=== PATIENT | female | born 1955 | race Caucasian/White ===

== ENCOUNTER → 2016-04-19 | Outpatient (REF) | payer OTHER | LOC: M LAB REF 12:01 | PROVIDERS: ATTEND Nurse Practitioner Adult Health | DX: Z01.89 Encounter for other specified special examinations (principal) ==

== ENCOUNTER 2017-12-17 10:38 | Day surgery (SDC) | payer OTHER ==
[~2017-12-17 10:38] MED LIST: NS 1,000 ML IV
[2017-12-17] MEDS ORDERED: PROPOFOL 200 MG/20 ML VIAL As Ordered ×3 (12:50)
== END 2017-12-17 13:31 | disposition home or self-care (01) ==
LOC: M OPP 10:38
DX: Z12.11 Encounter for screening for malignant neoplasm of colon (principal); D17.5 Benign lipomatous neoplasm of intra-abdominal organs; E03.9 Hypothyroidism, unspecified; G47.33 Obstructive sleep apnea (adult) (pediatric); J44.9 Chronic obstructive pulmonary disease, unspecified; E66.9 Obesity, unspecified; M19.90 Unspecified osteoarthritis, unspecified site; Z79.890 Hormone replacement therapy; Z79.899 Other long term (current) drug therapy; Z86.010 Personal history of colon polyps; Z88.5 Allergy status to narcotic agent; Z98.890 Other specified postprocedural states; Z87.891 Personal history of nicotine dependence
CPT/HCPCS: 45378

== ENCOUNTER 2017-12-28 16:17 | Inpatient (IN) | payer OTHER ==
[2017-12-28 17:43] LABS: BASO % 0.4 % (0.0-1.0); EOS # 0.2 10^3/uL (0.0-0.50); EOS % 1.9 % (0.0-3.0); HEMATOCRIT 43.3 % (36.0-47.0); HEMOGLOBIN 13.7 g/dl (12.0-15.5); IMMATURE GRANULOCYTE % 0.4 % (0-3.0); LYMPH # 2.3 10^3/uL (1.5-4.5); LYMPH % 22.1 % (24.0-44.0); MEAN CORPUSCULAR HEMOGLOBIN 31.4 pg (27.0-33.0); MEAN CORPUSCULAR HGB CONC 31.6 g/dl (32.0-36.5); MEAN CORPUSCULAR VOLUME 99.3 fl (80.0-96.0); MONO # 0.6 10^3/uL (0.0-0.8); MONO % 5.8 % (0.0-5.0); NEUTROPHILS # 7.1 10^3/uL (1.8-7.7); NEUTROPHILS % 69.4 % (36.0-66.0); PLATELET COUNT, AUTOMATED 207 10^3/uL (150-450); RED BLOOD COUNT 4.36 10^6/uL (4.00-5.40); RED CELL DISTRIBUTION WIDTH 13.1 % (11.5-14.5); WHITE BLOOD COUNT 10.3 10^3/uL (4.0-10.0)
[2017-12-28 17:57] LABS: INR 1.09; PARTIAL THROMBOPLASTIN TIME 28.3 SECONDS (25.4-37.6); PROTHROMBIN TIME 14.2 SECONDS (12.1-14.4)
[2017-12-28 18:16] LABS: BEDSIDE GLUCOSE 106 MG/DL (80-115)
[2017-12-28 19:17] LABS: ALBUMIN 3.6 GM/DL (3.2-5.2); ALBUMIN/GLOBULIN RATIO 0.92 (1.00-1.93); ALKALINE PHOSPHATASE 92 U/L (45-117); ALT/SGPT 21 U/L (12-78); ANION GAP 9 MEQ/L (8-16); AST/SGOT 16 U/L (7-37); BILIRUBIN,DIRECT 0.2 MG/DL (0.0-0.2); BILIRUBIN,TOTAL 0.8 MG/DL (0.2-1.0); BLOOD UREA NITROGEN 19 MG/DL (7-18); CALCIUM LEVEL 9.2 MG/DL (8.8-10.2); CARBON DIOXIDE LEVEL 30 MEQ/L (21-32); CHLORIDE LEVEL 104 MEQ/L (98-107); CPK CREATINE PHOSPHOKINASE 84 U/L (26-192); CREATININE FOR GFR 0.76 MG/DL (0.55-1.30); FREE T4 1.34 NG/DL (0.76-1.46); GLOMERULAR FILTRATION RATE > 60.0 (>45); GLUCOSE, FASTING 102 MG/DL (70-100); MAGNESIUM LEVEL 2.3 MG/DL (1.8-2.4); MB/CK RELATIVE INDEX 1.55 (< OR =4); PHOSPHORUS LEVEL 2.9 MG/DL (2.5-4.9); SODIUM LEVEL 143 MEQ/L (136-145); TOTAL PROTEIN 7.5 GM/DL (6.4-8.2); TROPONIN I < 0.02 NG/ML (< 0.10)
[2017-12-28] MEDS: ASPIRIN 325 MG TAB PO (20:00)
[2017-12-28] MEDS: SIMVASTATIN 40 MG TAB PO (21:00)
[2017-12-29] MEDS: LEVOTHYROXINE 150MCG TABLET (0.15MG) PO (06:00)
[2017-12-29 06:31] LABS: BASO % 0.5 % (0.0-1.0); EOS # 0.2 10^3/uL (0.0-0.50); EOS % 2.5 % (0.0-3.0); HEMATOCRIT 40.3 % (36.0-47.0); HEMOGLOBIN 12.9 g/dl (12.0-15.5); IMMATURE GRANULOCYTE % 0.2 % (0-3.0); LYMPH # 2.2 10^3/uL (1.5-4.5); LYMPH % 26.3 % (24.0-44.0); MEAN CORPUSCULAR HEMOGLOBIN 31.8 pg (27.0-33.0); MEAN CORPUSCULAR VOLUME 99.3 fl (80.0-96.0); MONO # 0.5 10^3/uL (0.0-0.8); MONO % 6.3 % (0.0-5.0); NEUTROPHILS # 5.3 10^3/uL (1.8-7.7); NEUTROPHILS % 64.2 % (36.0-66.0); PLATELET COUNT, AUTOMATED 193 10^3/uL (150-450); RED BLOOD COUNT 4.06 10^6/uL (4.00-5.40); RED CELL DISTRIBUTION WIDTH 13.1 % (11.5-14.5); WHITE BLOOD COUNT 8.3 10^3/uL (4.0-10.0)
[2017-12-29 07:01] LABS: ALBUMIN/GLOBULIN RATIO 0.75 (1.00-1.93); ALKALINE PHOSPHATASE 80 U/L (45-117); ALT/SGPT 16 U/L (12-78); ANION GAP 6 MEQ/L (8-16); AST/SGOT 11 U/L (7-37); BILIRUBIN,TOTAL 0.5 MG/DL (0.2-1.0); BLOOD UREA NITROGEN 19 MG/DL (7-18); CARBON DIOXIDE LEVEL 29 MEQ/L (21-32); CHLORIDE LEVEL 106 MEQ/L (98-107); CREATININE FOR GFR 0.68 MG/DL (0.55-1.30); FREE THYROXINE INDEX 3.1 % (1.3-4.8); GLOMERULAR FILTRATION RATE > 60.0 (>45); GLUCOSE, FASTING 107 MG/DL (70-100); POTASSIUM SERUM 4.1 MEQ/L (3.5-5.1); SODIUM LEVEL 141 MEQ/L (136-145); T UPTAKE 36 % (30-39); THYROXINE (T4) 8.7 UG/DL (4.5-12.0)
[2017-12-29] MEDS ORDERED: SLF 3 ML SYR IV (08:00)
[2017-12-29] MEDS: TORSEMIDE 20 MG TAB PO (08:58)
[2017-12-29] MEDS: ASPIRIN 81 MG ENTERIC TAB PO (08:58)
[2017-12-29] MEDS: SLF 3 ML SYR IV ×2 (12:58→21:02)
[2017-12-29 14:04] LABS: ESTIMATED AVERAGE GLUCOSE 143 MG/DL (60-110); HEMOGLOBIN A1c 6.6 %
[2017-12-29] MEDS: ENOXAPARIN 40 MG/0.4 ML SYRINGE (J1650) SC (14:08)
[2017-12-29] MEDS: SIMVASTATIN 40 MG TAB PO (21:00)
[2017-12-30] MEDS: SLF 3 ML SYR IV ×3 (05:16→20:23)
[2017-12-30] MEDS: LEVOTHYROXINE 150MCG TABLET (0.15MG) PO (05:27)
[2017-12-30] MEDS: ASPIRIN 81 MG ENTERIC TAB PO (08:15)
[2017-12-30] MEDS: ENOXAPARIN 40 MG/0.4 ML SYRINGE (J1650) SC (08:15)
[2017-12-30] MEDS: TORSEMIDE 20 MG TAB PO (08:15)
[2017-12-30 08:48] LABS: HEMATOCRIT 42.2 % (36.0-47.0); HEMOGLOBIN 13.2 g/dl (12.0-15.5); MEAN CORPUSCULAR HEMOGLOBIN 31.6 pg (27.0-33.0); MEAN CORPUSCULAR HGB CONC 31.3 g/dl (32.0-36.5); PLATELET COUNT, AUTOMATED 194 10^3/uL (150-450); RED BLOOD COUNT 4.18 10^6/uL (4.00-5.40); RED CELL DISTRIBUTION WIDTH 13.2 % (11.5-14.5); WHITE BLOOD COUNT 8.6 10^3/uL (4.0-10.0)
[2017-12-30 09:09] LABS: ANION GAP 6 MEQ/L (8-16); BLOOD UREA NITROGEN 18 MG/DL (7-18); CALCIUM LEVEL 9.3 MG/DL (8.8-10.2); CARBON DIOXIDE LEVEL 30 MEQ/L (21-32); CHLORIDE LEVEL 105 MEQ/L (98-107); CREATININE FOR GFR 0.82 MG/DL (0.55-1.30); GLOMERULAR FILTRATION RATE > 60.0 (>45); GLUCOSE, FASTING 88 MG/DL (70-100); POTASSIUM SERUM 3.9 MEQ/L (3.5-5.1); SODIUM LEVEL 141 MEQ/L (136-145)
[2017-12-30] MEDS: SIMVASTATIN 40 MG TAB PO (20:23)
[2017-12-31] MEDS: LEVOTHYROXINE 150MCG TABLET (0.15MG) PO (05:17)
[2017-12-31] MEDS: SLF 3 ML SYR IV ×3 (05:17→20:00)
[2017-12-31 05:39] LABS: HEMATOCRIT 39.3 % (36.0-47.0); HEMOGLOBIN 12.3 g/dl (12.0-15.5); MEAN CORPUSCULAR HEMOGLOBIN 31.4 pg (27.0-33.0); MEAN CORPUSCULAR HGB CONC 31.3 g/dl (32.0-36.5); MEAN CORPUSCULAR VOLUME 100.3 fl (80.0-96.0); PLATELET COUNT, AUTOMATED 180 10^3/uL (150-450); RED BLOOD COUNT 3.92 10^6/uL (4.00-5.40); RED CELL DISTRIBUTION WIDTH 13.1 % (11.5-14.5); WHITE BLOOD COUNT 8.1 10^3/uL (4.0-10.0)
[2017-12-31 05:51] LABS: ANION GAP 5 MEQ/L (8-16); BLOOD UREA NITROGEN 17 MG/DL (7-18); CALCIUM LEVEL 8.4 MG/DL (8.8-10.2); CARBON DIOXIDE LEVEL 30 MEQ/L (21-32); CHLORIDE LEVEL 105 MEQ/L (98-107); CREATININE FOR GFR 0.74 MG/DL (0.55-1.30); GLOMERULAR FILTRATION RATE > 60.0 (>45); GLUCOSE, FASTING 110 MG/DL (70-100); POTASSIUM SERUM 3.7 MEQ/L (3.5-5.1); SODIUM LEVEL 140 MEQ/L (136-145)
[2017-12-31] MEDS: ACETAMINOPHEN TAB 650MG DOSE (2X325MG) PO ×3 (06:31→20:01)
[2017-12-31] MEDS: ASPIRIN 81 MG ENTERIC TAB PO (08:00)
[2017-12-31] MEDS: TORSEMIDE 20 MG TAB PO (08:01)
[2017-12-31] MEDS: ENOXAPARIN 40 MG/0.4 ML SYRINGE (J1650) SC (08:01)
[2017-12-31] MEDS: SIMVASTATIN 40 MG TAB PO (20:00)
[2018-01-01] MEDS: LEVOTHYROXINE 150MCG TABLET (0.15MG) PO (05:19)
[2018-01-01] MEDS: SLF 3 ML SYR IV (05:20)
[2018-01-01] MEDS: ACETAMINOPHEN TAB 650MG DOSE (2X325MG) PO (05:21)
[2018-01-01 05:47] LABS: HEMOGLOBIN 12.4 g/dl (12.0-15.5); MEAN CORPUSCULAR HEMOGLOBIN 30.7 pg (27.0-33.0); PLATELET COUNT, AUTOMATED 186 10^3/uL (150-450); RED BLOOD COUNT 4.04 10^6/uL (4.00-5.40); RED CELL DISTRIBUTION WIDTH 13.1 % (11.5-14.5); WHITE BLOOD COUNT 7.9 10^3/uL (4.0-10.0)
[2018-01-01 06:14] LABS: ANION GAP 5 MEQ/L (8-16); BLOOD UREA NITROGEN 21 MG/DL (7-18); CALCIUM LEVEL 8.7 MG/DL (8.8-10.2); CARBON DIOXIDE LEVEL 31 MEQ/L (21-32); CHLORIDE LEVEL 103 MEQ/L (98-107); CREATININE FOR GFR 0.76 MG/DL (0.55-1.30); GLOMERULAR FILTRATION RATE > 60.0 (>45); GLUCOSE, FASTING 112 MG/DL (70-100); POTASSIUM SERUM 3.5 MEQ/L (3.5-5.1); SODIUM LEVEL 139 MEQ/L (136-145)
[2018-01-01] MEDS: ASPIRIN 81 MG ENTERIC TAB PO (08:52)
[2018-01-01] MEDS: ENOXAPARIN 40 MG/0.4 ML SYRINGE (J1650) SC (08:52)
[2018-01-01] MEDS: TORSEMIDE 20 MG TAB PO (08:52)
== END 2018-01-01 14:02 | disposition home or self-care (01) | DRG 45 ==
LOC: M PCU 12-29 05:31 → M ED 16:17 → M ED INP 21:28
DX: I63.9 Cerebral infarction, unspecified (principal); Z68.43 Body mass index [BMI] 50.0-59.9, adult; E66.01 Morbid (severe) obesity due to excess calories; E03.9 Hypothyroidism, unspecified; F17.200 Nicotine dependence, unspecified, uncomplicated; E11.9 Type 2 diabetes mellitus without complications; G47.33 Obstructive sleep apnea (adult) (pediatric); J44.9 Chronic obstructive pulmonary disease, unspecified; Z79.899 Other long term (current) drug therapy; Z88.5 Allergy status to narcotic agent; I89.0 Lymphedema, not elsewhere classified

== ENCOUNTER 2018-12-25 19:07 | Observation (INO) | payer OTHER ==
[~2018-12-25] VITALS: Ht 165.1 cm; Wt 138.8 kg
[~2018-12-25 19:07] MED LIST changes: +ANOR1AER INH; +ASPI81TAEC PO; +CLOB0.0548; +LEVO150T7 PO; +MELO7.5T7 PO; -NS 1,000 ML IV; +SIMV40TA2 PO; +TORS20TA2 PO
--- NOTE | 2018-12-25 19:27 | REPVR ---
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 Radiation optimization: All CT scans at this facility use at least one of these dose optimization techniques: automated exposure control; mA and/or kV adjustment per patient size (includes targeted exams where dose is matched to clinical indication); or iterative reconstruction. Other technique: STROKE PROTOCOL was implemented. COMPARISON: CT Head without contrast 12/28/2017 4:34 PM FINDINGS: Brain: There is again a lacunar infarct in the left caudate head. 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 No intracranial hemorrhage or extraaxial collection is identified. There is no significant intracranial mass effect. Ventricles: The ventricles and sulci are stable in configuration. Bones/joints: Unremarkable. No acute fracture. Sinuses: Visualized sinuses are unremarkable. No fluid levels. Mastoid air cells: Visualized mastoid air cells are well aerated. Soft tissues: Unremarkable. Vasculature: Intracranial atherosclerotic vascular calcifications are again present. IMPRESSION: No CT evidence for acute intracranial abnormality or significant change since 12/28/17. ASSESSMENT: ASPECTS ([place] Stroke Program Early CT Score) is 10. COMMENT: Early cerebral infarct may be CT occult in the first 12 hours. Electronically signed by: Hakeem Castrejon On 12/25/2018 19:26:46 PM
[2018-12-25 19:58] LABS: BASO % 0.4 % (0.0-1.0); EOS # 0.1 10^3/uL (0.0-0.5); EOS % 1.2 % (0.0-3.0); HEMATOCRIT 41.4 % (36.0-47.0); HEMOGLOBIN 12.6 g/dl (12.0-15.5); LYMPH # 1.6 10^3/uL (1.5-5.0); LYMPH % 19.8 % (24.0-44.0); MEAN CORPUSCULAR HEMOGLOBIN 30.7 pg (27.0-33.0); MEAN CORPUSCULAR HGB CONC 30.4 g/dl (32.0-36.5); MEAN CORPUSCULAR VOLUME 100.7 fl (80.0-96.0); MONO # 0.6 10^3/uL (0.0-0.8); MONO % 7.2 % (0.0-5.0); NEUTROPHILS # 5.8 10^3/uL (1.5-8.5); PLATELET COUNT, AUTOMATED 223 10^3/uL (150-450); RED BLOOD COUNT 4.11 10^6/uL (4.00-5.40); WHITE BLOOD COUNT 8.2 10^3/uL (4.0-10.0)
[2018-12-25 20:19] LABS: ACETAMINOPHEN LEVEL < 2.0 UG/ML (10.0-30.0); ALBUMIN 3.2 GM/DL (3.2-5.2); ALT/SGPT 16 U/L (12-78); BILIRUBIN,DIRECT 0.1 MG/DL (0.0-0.2); BILIRUBIN,TOTAL 0.4 MG/DL (0.2-1.0); BLOOD UREA NITROGEN 20 MG/DL (7-18); CALCIUM LEVEL 9.4 MG/DL (8.8-10.2); CARBON DIOXIDE LEVEL 28 MEQ/L (21-32); CHLORIDE LEVEL 105 MEQ/L (98-107); CPK CREATINE PHOSPHOKINASE 66 U/L (26-192); CREATININE FOR GFR 0.85 MG/DL (0.55-1.30); ETHYL ALCOHOL (ETHANOL) < 0.003 % (0.000-0.010); GLOMERULAR FILTRATION RATE > 60.0 (>45); GLUCOSE, FASTING 101 MG/DL (70-100); MB/CK RELATIVE INDEX 1.52 (< OR =4); SALICYLATE LEVEL < 1.7 MG/DL (5.0-30.0); SODIUM LEVEL 139 MEQ/L (136-145); TOTAL PROTEIN 7.4 GM/DL (6.4-8.2); TROPONIN I < 0.02 NG/ML (< 0.10)
[2018-12-25] MEDS: NS 1,000 ML IV SCH (20:28)
--- NOTE | 2018-12-25 21:08 | HPEPDOC ---
[facility] Medical History & Physical Date of Admission Dec 25, 2018 Date of Service: Dec 25, 2018 Primary Care Physician: Jr Anna Collins Attending Physician: DORIAN YOO MD History and Physical TIME OF SERVICE: 9:50 PM CHIEF COMPLAINT: Slurred speech HISTORY OF PRESENT ILLNESS: This is a 63-year-old female who presented to the hospital for evaluation after an episode of slurred speech. Yesterday she had cataract surgery, today she slept most of the day and when she woke up her speech was slurred, which resolved prior to arrival in the ER. She denied having associated weakness, paresthesias, or falling. She did report having transient palpitations, runny nose, cough, congestion, and feeling tired. She received aspirin in the ED per discussion with Vinayak Aranda NIH score 0. 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 Status post cholecystectomy Status post myomectomy. Status post hernia repair 2 Status post surgery for small bowel obstruction. Status post right shoulder surgery. Status post resection of piloidal cyst Denies history of PR or diabetes SOCIAL HISTORY: Former smoker. Occasionally uses alcohol. Denies recreational drug use FAMILY HISTORY: Denies family history of CVA ALLERGIES: Please see below. HOME MEDICATIONS: Please see below. PHYSICAL EXAMINATION: VITAL SIGNS: Please see below. GENERAL APPEARANCE: Well-nourished, well-developed, not in apparent distress HEENT: Cephalic, atraumatic. Mucous membranes moist and pink. Left eye has conjunctival injection CARDIOVASCULAR: Regular rate and rhythm. No murmurs, rubs or gallops LUNGS: Clear to auscultation bilaterally on room air ABDOMEN: Positive bowel sounds. Abdomen is soft and nontender on palpation MUSCULOSKELETAL: Range of motion intact in all 4 extremities INTEGUMENT: She does not appear jaundice, and is not flushed NEUROLOGICAL: Cranial nerves II-12 are grossly intact. Speech is not dysarthric, strength is 5 out of 5 in all extremities PSYCHIATRIC: Alert and oriented, able to understand and follow commands LABORATORY DATA: See below. IMAGING: CT head " IMPRESSION: No CT evidence for acute intracranial abnormality or significant change since 12/28/17. Chest x-ray " Impression: 1. Mild cardiomegaly along with bilateral opacities (right greater left). Differential diagnosis includes element of pulmonary vascular congestion as well as multifocal pneumonia / atelectasis. 2. A pericardial effusion cannot be excluded." CTA neck " IMPRESSION: No acute abnormality. Ground glass opacification in the visualized right apex. Etiology can be infectious/inflammatory/edema. Comparison with the recent chest imaging is suggested for complete evaluation. CTA head " IMPRESSION: No acute abnormality." MRI brain " IMPRESSION: No acute findings." MICROBIOLOGY: Please see below. ASSESSMENT: Ms. Eid is a 63-year-old female with a past medical history of COPD, chronic oxygen-dependent respiratory failure, remote history of CVA with residual left sided weakness, and hypothyroidism who will be admitted for evaluation of slurred speech. PLAN: 1. Transient Slurred speech. Possibly due to TIA She reported having palpitations CTs of the brain and MRI reviewed and confirmed as no acute process. On arrival, her blood pressure was 191/88 EKG showed normal sinus rhythm with a heart rate of 60 Plan: Admit to medical floor/telemetry/continue aspirin and statin /follow-up lipid panel and A1c /Permissive hypertension for 24 hours with target blood pressure less than 220/120 / the daytime team can decide neurology consult is warranted submission her she can follow-up with neurology on an outpatient basis / will not consult PT, OT because she denies having any weakness / if the palpitations continue she can f/u her PCP for referral to have a Holter monitor placed 2.Mild Multifocal pneumonia She is hypoxic with an oxygen saturation of 88% despite having her baseline of 3 L of O2 There are no other SIRS criterial. Chest x-ray reviewed CURB 65 score to determine if pt should be admitted = 1 point = low risk = out patient treatment Plan: c/w supplemental O2 / Follow-up influenza / supplemental O2/ by mouth levofloxacin/ tessalon pearls / Acetaminophen PRN for fever 3. Asymptomatic bacteriuria No intervention 4. Hx of CVA Plan: Continue with aspirin and statin 6. COPD / Chronic oxygen-dependent respiratory failure Stable. Plan: continue supplemental oxygen/albuterol when necessary 7. 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 Disposition: Likely home after less than 2 midnight stay Vital Signs Vital Signs Date Time Temp Pulse Resp B/P (MAP) Pulse Ox O2 Delivery O2 Flow Rate FiO2 12/25/18 19:48 12/25/18 19:33 60 16 88 Room Air 3.0 12/25/18 19:07 97.5 Laboratory Data Labs 24H Laboratory Tests 2 12/25/18 19:42: Immature Granulocyte % (Auto) 0.4, Neutrophils (%) (Auto) 71.0H, Lymphocytes (%) (Auto) 19.8L, Monocytes (%) (Auto) 7.2H, Eosinophils (%) (Auto) 1.2, Basophils (%) (Auto) 0.4, Neutrophils # (Auto) 5.8, Lymphocytes # (Auto) 1.6, Monocytes # (Auto) 0.6, Eosinophils # (Auto) 0.1, Basophils # (Auto) 0.0, Nucleated Red Blood Cells % (auto) 0.0, Anion Gap 6L, Glomerular Filtration Rate > 60.0, Calcium Level 9.4, Total Bilirubin 0.4, Direct Bilirubin 0.1, Aspartate Amino Transf (AST/SGOT) 16, Alanine Aminotransferase (ALT/SGPT) 16, Alkaline Phosphatase 91, Total Creatine Kinase 66, Creatine Kinase MB 1.0, Creatine Kinase MB Relative Index 1.52, Troponin I < 0.02, Total Protein 7.4, Albumin 3.2, Albumin/Globulin Ratio 0.76L, Salicylates Level < 1.7L, Acetaminophen Level < 2.0L, Ethyl Alcohol Level < 0.003 12/25/18 20:47: CBC/BMP Laboratory Tests 12/25/18 19:42 Home Medications Scheduled Acetaminophen (Tylenol Extra Strength) 500 Mg Tablet, 1,000 MG PO DAILY Aspirin (Aspirin EC) 81 Mg Tablet.dr, 81 MG PO DAILY Glycopyrrolate/Formoterol Fum (Bevespi Aerosphere Inhaler) 10.7 Gm Hfa.aer.ad, 2 PUFFS INH BID Levofloxacin (Levaquin) 500 Mg Tablet, 500 MG PO DAILY@06 Levothyroxine Sodium (Synthroid) 175 Mcg Tablet, 175 MCG PO DAILY Simvastatin (Simvastatin) 40 Mg Tablet, 40 MG PO QHS Torsemide (Torsemide) 20 Mg Tab, 30 MG PO DAILY Scheduled PRN Tramadol HCl (Tramadol HCl) 50 Mg Tablet, 50 MG PO QID PRN for PAIN Allergies Coded Allergies: codeine (Verified Adverse Reaction, Mild, n/v, 12/25/18) A-FIB/CHADSVASC A-FIB History Current/History of A-Fib/PAF?: No Current PO Anticoag Therapy: No DORIAN YOO MD Dec 25, 2018 21:08
[2018-12-25] MEDS ORDERED: ACETAMINOPHEN TAB 650MG DOSE (2X325MG) PO PRN (21:15)
[2018-12-25] MEDS ORDERED: ASPIRIN 81 MG CHEW TABLET PO ONE (21:15)
[2018-12-25 21:28] LABS: AMPHETAMINES LEVEL URINE NEGATIVE (NEGATIVE); BARBITURATES URINE NEGATIVE (NEGATIVE); BENZODIAZEPINES URINE POSITIVE (NEGATIVE); CANNABINOIDS URINE NEGATIVE (NEGATIVE); COCAINE METABOLITE URINE NEGATIVE (NEGATIVE); METHADONE URINE NEGATIVE (NEGATIVE); OPIATES URINE NEGATIVE (NEGATIVE); PHENCYCLIDINE URINE NEGATIVE (NEGATIVE)
[2018-12-25] MEDS ORDERED: NITROFURANTOIN (MACROBID) 100 MG CAP PO ONE (21:30)
[2018-12-25] MEDS ORDERED: ISOVUE-370 76% 100ML VIAL (Q9967) As Ordered ONE (21:30)
[2018-12-25 21:33] LABS: CHOLESTEROL LEVEL 122 MG/DL (<200); CHOLESTEROL RISK RATIO 1.648 (<5); HDL CHOLESTEROL 74 MG/DL (>40); LDL CHOLESTEROL 34 MG/DL (<100); NON-HDL-C 48 MG/DL; TRIGLYCERIDES LEVEL 69 MG/DL (<150)
--- NOTE | 2018-12-25 21:53 | REPVR ---
PROCEDURE INFORMATION: Exam: CT Angiography Neck With Contrast Exam date and time: 12/25/2018 9:46 PM Clinical history: 63 years old, female; Condition or disease; Transient cerebral ischemic attacks (tia); Type not specified TECHNIQUE: Imaging protocol: Computed tomography angiography of the neck with intravenous contrast. 3D rendering: MIP reconstructed images were created and reviewed. Radiation optimization: All CT scans at this facility use at least one of these dose optimization techniques: automated exposure control; mA and/or kV adjustment per patient size (includes targeted exams where dose is matched to clinical indication); or iterative reconstruction. Contrast material: ISOVUE 370; Contrast volume: 100 ml; Contrast route: IV; COMPARISON: No relevant prior studies available. FINDINGS: VASCULATURE: Right common carotid artery: Unremarkable. No stenosis. No dissection or occlusion. Right internal carotid artery: Unremarkable extracranial segment. No stenosis. No dissection or occlusion. Right external carotid artery: Unremarkable. No occlusion or stenosis of the origin. Right vertebral artery: Unremarkable. No stenosis. No dissection or occlusion. Left common carotid artery: Unremarkable. No stenosis. No dissection or occlusion. Left internal carotid artery: Unremarkable extracranial segment. No stenosis. No dissection or occlusion. Left external carotid artery: Unremarkable. No occlusion or stenosis of the origin. Left vertebral artery: Unremarkable. No stenosis. No dissection or occlusion. NECK: Bones/joints: No acute fracture. Soft tissues: Normal. No significant soft tissue swelling. Lungs: Groundglass opacification in the visualized right upper lobe apex. IMPRESSION: No acute abnormality. Groundglass opacification in the visualized right apex. Etiology can be infectious/inflammatory/edema. Comparison with the recent chest imaging is suggested for complete evaluation. COMMENT: Reference per NASCET criteria for degree of stenosis: Mild: less than 50% stenosis. Moderate: 50-69% stenosis. Severe: 70-94% stenosis. Near occlusion: 95-99% stenosis. Electronically signed by: Kyle Merritt On 12/25/2018 21:53:16 PM
--- NOTE | 2018-12-25 21:57 | REPVR ---
PROCEDURE INFORMATION: Exam: CT Angiography Head With Contrast Exam date and time: 12/25/2018 9:46 PM Clinical history: 63 years old, female; Condition or disease; Transient cerebral ischemic attacks (tia); Type not specified TECHNIQUE: Imaging protocol: Computed tomography angiography of the head with intravenous contrast. 3D rendering: MIP reconstructed images were created and reviewed. Radiation optimization: All CT scans at this facility use at least one of these dose optimization techniques: automated exposure control; mA and/or kV adjustment per patient size (includes targeted exams where dose is matched to clinical indication); or iterative reconstruction. Contrast material: ISOVUE 370; Contrast volume: 100 ml; Contrast route: IV; COMPARISON: CT Head without contrast 12/25/2018 7:16 PM FINDINGS: Right internal carotid artery: Unremarkable. Intracranial segment is patent with no significant stenosis. No aneurysm. Right anterior cerebral artery: Unremarkable. No occlusion or significant stenosis. No aneurysm. Right middle cerebral artery: Unremarkable. No occlusion or significant stenosis. No aneurysm. Right posterior cerebral artery: Unremarkable. No occlusion or significant stenosis. No aneurysm. Right vertebral artery: Unremarkable. No occlusion or significant stenosis. No aneurysm. Left internal carotid artery: Unremarkable. Intracranial segment is patent with no significant stenosis. No aneurysm. Left anterior cerebral artery: Unremarkable. No occlusion or significant stenosis. No aneurysm. Left middle cerebral artery: Unremarkable. No occlusion or significant stenosis. No aneurysm. Left posterior cerebral artery: Unremarkable. No occlusion or significant stenosis. No aneurysm. Left vertebral artery: Unremarkable. No occlusion or significant stenosis. No aneurysm. Basilar artery: Unremarkable. No occlusion or significant stenosis. No aneurysm. IMPRESSION: No acute abnormality. Electronically signed by: Kyle Merritt On 12/25/2018 21:57:33 PM
[2018-12-25 22:09] LABS: HEMOGLOBIN A1c 6.8 %
[2018-12-25] MEDS ORDERED: SYNT175T2 PO (22:11)
[2018-12-25] MEDS ORDERED: SIMV40TA2 PO (22:11)
[2018-12-25] MEDS ORDERED: ASPI-161 PO (22:11)
[2018-12-25] MEDS ORDERED: BEVE1AER INH (22:11)
[2018-12-25] MEDS ORDERED: TRAM50TA2 PO (22:11)
--- NOTE | 2018-12-25 23:15 | REPVR ---
PROCEDURE INFORMATION: Exam: MR Head Without Contrast Exam date and time: 12/25/2018 9:10 PM Clinical history: 63 years old, female; Speech disturbance; Slurred speech; Additional info: TIA TECHNIQUE: Imaging protocol: MR of the head without contrast. COMPARISON: MRI-Brain without Contrast 12/30/2017 4:16 PM FINDINGS: Brain: There are a few scattered T2 and flair hyperintensity is demonstrated in the periventricular white matter as noted previously consistent with chronic small vessel ischemic change. 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 Stable basal ganglia chronic infarct on the left. Previously demonstrated focus of restricted diffusion no longer present. No new foci demonstrated. Ventricles: Normal. No ventriculomegaly. Bones/joints: Unremarkable. Soft tissues: Unremarkable. Sinuses: Normal as visualized. No acute sinusitis. Mastoid air cells: Normal as visualized. No mastoid effusion. Orbits: Unremarkable. IMPRESSION: No acute findings. Electronically signed by: Mark Corey On 12/25/2018 23:15:19 PM
[2018-12-25] MEDS ORDERED: ACET-897 PO (23:17)
[2018-12-25 23:30] VITALS: BP 117/64
[2018-12-25] MEDS ORDERED: traMADol 50 MG TAB PO PRN (23:45)
[2018-12-25] MEDS ORDERED: SIMVASTATIN 40 MG TAB PO SCH (23:45)
--- NOTE | 2018-12-26 00:26 | REP ---
Clinical: Altered mental status. Comparison: 12/28/2017. Findings: The cardiac silhouette is mildly enlarged perihilar and basilar opacities (right greater than left) are appreciated. Layering effusion cannot be excluded. No pneumothorax. Skeletal structures intact. Impression: 1. Mild cardiomegaly along with bilateral opacities (right greater left). Differential diagnosis includes element of pulmonary vascular congestion as well as multifocal pneumonia / atelectasis. 2. A pericardial effusion cannot be excluded. Electronically Signed by Chau Garcia MD 12/26/2018 12:18 A
[2018-12-26] MEDS: NS 1,000 ML IV SCH (00:28)
[2018-12-26] MEDS ORDERED: ALBUTEROL SULFATE 2.5 MG/0.5 ML INH NEB SOLN NEB PRN (01:00)
[2018-12-26] MEDS ORDERED: BENZONATATE 100 MG CAP PO PRN (01:00)
[2018-12-26 02:00] VITALS: BP 122/63
[2018-12-26 06:00] VITALS: BP 135/72
[2018-12-26] MEDS ORDERED: LevoFLOXacin 500 MG TABLET PO SCH (06:00)
[2018-12-26] MEDS ORDERED: LEVOTHYROXINE 150MCG TABLET (0.15MG) PO SCH (06:00)
[2018-12-26] MEDS ORDERED: FORMOTEROL FUMARATE 20 MCG/2 ML INHALATION SOLUTION (PERFOROMIST) INH SCH (08:00)
[2018-12-26] MEDS ORDERED: TIOTROPIUM INHALER/CAPSULE (SPIRIVA) INH SCH (08:00)
[2018-12-26] MEDS ORDERED: ASPIRIN 81 MG CHEW TABLET PO SCH (09:00)
[2018-12-26] MEDS ORDERED: ACETAMINOPHEN 500 MG TAB PO SCH (09:00)
[2018-12-26] MEDS ORDERED: TORSEMIDE 10 MG TABLET PO SCH (09:00)
[2018-12-26] MEDS ORDERED: ENTER DRUG NAME HERE (PATIENT'S OWN MED) INH SCH (09:00)
[2018-12-26 10:00] VITALS: BP 122/58
[2018-12-26 10:20] LABS: HEMATOCRIT 40.8 % (36.0-47.0); HEMOGLOBIN 12.3 g/dl (12.0-15.5); MEAN CORPUSCULAR HEMOGLOBIN 30.7 pg (27.0-33.0); MEAN CORPUSCULAR HGB CONC 30.1 g/dl (32.0-36.5); MEAN CORPUSCULAR VOLUME 101.7 fl (80.0-96.0); PLATELET COUNT, AUTOMATED 210 10^3/uL (150-450); RED BLOOD COUNT 4.01 10^6/uL (4.00-5.40); WHITE BLOOD COUNT 7.3 10^3/uL (4.0-10.0)
[2018-12-26 10:44] LABS: BLOOD UREA NITROGEN 17 MG/DL (7-18); CALCIUM LEVEL 9.7 MG/DL (8.8-10.2); CARBON DIOXIDE LEVEL 27 MEQ/L (21-32); CHLORIDE LEVEL 108 MEQ/L (98-107); CREATININE FOR GFR 0.74 MG/DL (0.55-1.30); GLOMERULAR FILTRATION RATE > 60.0 (>45); GLUCOSE, FASTING 120 MG/DL (70-100); POTASSIUM SERUM 4.2 MEQ/L (3.5-5.1); SODIUM LEVEL 141 MEQ/L (136-145)
[2018-12-26] MEDS ORDERED: LEVA1TAB2 PO (12:37)
--- NOTE | 2018-12-26 12:45 | DS.PDOC ---
Discharge Summary General Date of Admission Dec 25, 2018 at 19:08 Date of Discharge 12/26/2018 Discharge Summary ADMITTING DIAGNOSES: TIA DISCHARGE DIAGNOSES: TIA COMPLICATIONS/CHIEF COMPLAINT: resolved episode of slurred speech HISTORY OF PRESENT ILLNESS: "63-year-old female who presented to the hospital for evaluation after an episode of slurred speech. Yesterday she had cataract surgery, today she slept most of the day and when she woke up her speech was slurred, which resolved prior to arrival in the ER. She denied having associated weakness, paresthesias, or falling. She did report having transient palpitations, runny nose, cough, congestion, and feeling tired. She received aspirin in the ED per discussion with Vinayak Aranda NIH score 0." HOSPITAL COURSE: 63 y/o F came to ER for c/o one resolved episode of slurred speech. Throughout hospital stay pt remained asymtomatic, there was no significant event on telemetry. Pt was also evaluated by PT and was stable to be discharged home. During hospital pt was started on PO levofloxacin for suspected pneumonia. Imaging studies including CT/MRI head did not show any acute pathology. Pt was seen and examined at bedside on day of discharge. Pt stated that she is feeling fine and did not have any complaint. Pt was clinically and vitally stable at the time of discharge. DISCHARGE MEDICATIONS: Please see below. ALLERGIES: Please see below. PHYSICAL EXAMINATION ON DISCHARGE: VITAL SIGNS: Please see below. GENERAL: Comfortable HEENT: oral mucosa moist NECK: supple CARDIOVASCULAR EXAMINATION:regular rate and rhythm RESPIRATORY EXAMINATION: clear to auscultation ABDOMINAL EXAMINATION: soft, non tender NEUROLOGICAL EXAMINATION: No focal deficit Vital Signs/I&Os Vital Signs Date Time Temp Pulse Resp B/P (MAP) Pulse Ox O2 Delivery O2 Flow Rate FiO2 12/26/18 10:00 97.6 59 21 122/58 (79) 92 Nasal Cannula 3.0 I&O- Last 24 Hours up to 6 AM 12/26/18 06:00 Intake Total 100 ml Output Total 400 ml Balance -300 ml Laboratory Data Labs 24H Laboratory Tests 2 12/25/18 19:42: Immature Granulocyte % (Auto) 0.4, Neutrophils (%) (Auto) 71.0H, Lymphocytes (%) (Auto) 19.8L, Monocytes (%) (Auto) 7.2H, Eosinophils (%) (Auto) 1.2, Basophils (%) (Auto) 0.4, Neutrophils # (Auto) 5.8, Lymphocytes # (Auto) 1.6, Monocytes # (Auto) 0.6, Eosinophils # (Auto) 0.1, Basophils # (Auto) 0.0, Nucleated Red Blood Cells % (auto) 0.0, Anion Gap 6L, Glomerular Filtration Rate > 60.0, Estimated Mean Plasma Glucose 148H, Hemoglobin A1c 6.8, Calcium Level 9.4, Total Bilirubin 0.4, Direct Bilirubin 0.1, Aspartate Amino Transf (AST/SGOT) 16, Alanine Aminotransferase (ALT/SGPT) 16, Alkaline Phosphatase 91, Total Creatine Kinase 66, Creatine Kinase MB 1.0, Creatine Kinase MB Relative Index 1.52, Troponin I < 0.02, Total Protein 7.4, Albumin 3.2, Albumin/Globulin Ratio 0.76L, Triglycerides Level 69, Total Cholesterol 122, LDL Cholesterol 34, Non-HDL Cholesterol (LDL + VLDL) 48, Total HDL Cholesterol 74, Cholesterol/HDL Ratio 1.648, Salicylates Level < 1.7L, Acetaminophen Level < 2.0L, Ethyl Alcohol Level < 0.003 12/25/18 20:47: Urine Color YELLOW, Urine Appearance HAZY, Urine pH 6.0, Urine Specific [place] 1.026, Urine Protein 2+H, Urine Glucose (UA) NEGATIVE, Urine Ketones NEGATIVE, Urine Blood NEGATIVE, Urine Nitrite NEGATIVE, Urine Bilirubin NEGATIVE, Urine Urobilinogen 4.0H, Urine Leukocyte Esterase 1+H, Urine WBC (Auto) 16H, Urine RBC (Auto) 5H, Urine Hyaline Casts (Auto) 1, Urine Bacteria (Auto) NEGATIVE, Urine Squamous Epithelial Cells 2, Urine Mucus (Auto) SMALL, Urine Sperm (Auto) , Urine Opiates Screen NEGATIVE, Urine Methadone Screen NEGATIVE, Urine Barbiturates Screen NEGATIVE, Urine Phencyclidine Screen NEGATIVE, Urine Amphetamines Screen NEGATIVE, Urine Benzodiazepines Screen POSITIVEH, Urine Cocaine Metabolite Screen NEGATIVE, Urine Cannabinoids Screen NEGATIVE 12/26/18 10:04: Nucleated Red Blood Cells % (auto) 0.0, Anion Gap 6L, Glomerular Filtration Rate > 60.0, Calcium Level 9.7 CBC/BMP Laboratory Tests 12/25/18 19:42 12/26/18 10:04 Microbiology Microbiology 12/25/18 Urine Culture, Received Pending Discharge Medications Scheduled Acetaminophen (Tylenol Extra Strength) 500 Mg Tablet, 1,000 MG PO DAILY, (Reported) Aspirin (Aspirin EC) 81 Mg Tablet.dr, 81 MG PO DAILY, (Reported) Glycopyrrolate/Formoterol Fum (Bevespi Aerosphere Inhaler) 10.7 Gm Hfa.aer.ad, 2 PUFFS INH BID, (Reported) Levofloxacin (Levaquin) 500 Mg Tablet, 500 MG PO DAILY@06 Levothyroxine Sodium (Synthroid) 175 Mcg Tablet, 175 MCG PO DAILY, (Reported) Simvastatin (Simvastatin) 40 Mg Tablet, 40 MG PO QHS, (Reported) Torsemide (Torsemide) 20 Mg Tab, 30 MG PO DAILY, (Reported) Scheduled PRN Tramadol HCl (Tramadol HCl) 50 Mg Tablet, 50 MG PO QID PRN for PAIN, (Reported) Allergies Coded Allergies: codeine (Verified Adverse Reaction, Mild, n/v, 12/25/18) MYLES YU MD Dec 26, 2018 12:45
--- NOTE | 2018-12-26 18:57 | ECGEPIP ---
[facility] - ED Test Date: 2018-12-25 Pat Name: SELENA LUCAS Department: Room: [place] [address] Gender: Female Patient Care Associate: ELLA : 1955 Requested By: JEANNIE CHENG Order Number: [id number] Reading MD: Rosi Perez Measurements Intervals [place] Rate: 60 P: 29 TX: 178 QRS: 109 QRSD: 127 T: 7 QT: 441 QTc: 442 Interpretive Statements SINUS RHYTHM MARKED RIGHT AXIS DEVIATION MODERATE INTRAVENTRICULAR CONDUCTION DELAY NSTTW abnormalities SIMILAR 12/28/17 17:43 Electronically Signed on 12-26-2018 18:57:17 EST by Rosi Perez
== END 2018-12-26 14:15 | disposition home or self-care (01) ==
LOC: M ED 19:07 → M ED INP 19:08 → M MSPAV 23:24
PROVIDERS: ADMIT Internal Medicine; ATTEND Internal Medicine
DX: G45.9 Transient cerebral ischemic attack, unspecified (principal); E03.9 Hypothyroidism, unspecified; J44.9 Chronic obstructive pulmonary disease, unspecified; E66.01 Morbid (severe) obesity due to excess calories; Z99.81 Dependence on supplemental oxygen; Z79.82 Long term (current) use of aspirin; Z79.899 Other long term (current) drug therapy; Z88.5 Allergy status to narcotic agent; Z86.73 Personal history of transient ischemic attack (TIA), and cerebral infarction without residual deficits; Z87.891 Personal history of nicotine dependence
CPT/HCPCS: 36415; 70450; 70496; 70498; 70551; 71045; 80048; 80061; 80076; 80307; 81001; 82550; 82553; 83036; 85025; 85027; 87088; 87186; 93005; 93041; 94760; 96360; 96361; 97116; 97161; 97530; 99285; G0480; Q9967

== ENCOUNTER → 2019-07-10 | Outpatient (REF) | payer BC ==
[~2019-07-10] MED LIST changes: +ACET-897 PO; +AMLO2.5T3 PO; +ASPI-161 PO; +BEVE1AER INH; +COLC1TAB13 PO; +LEVA1TAB2 PO; +MULTCAP PO; +NITR0.4S14 SL; +ROSU5TAB5 PO; -SIMV40TA2 PO; +SIMV40TA20 PO; +SYNT175T2 PO; +TRAM50TA2 PO
== END ==
LOC: M LAB REF 15:58
PROVIDERS: ATTEND Nurse Practitioner Adult Health
DX: M10.072 Idiopathic gout, left ankle and foot (principal)

== ENCOUNTER 2019-07-14 18:16 | Inpatient (IN) | payer BC ==
[~2019-07-14] VITALS: Ht 165.1 cm; Wt 145.3 kg
[~2019-07-14 18:16] MED LIST changes: -AMLO2.5T3 PO; -COLC1TAB13 PO; -MULTCAP PO; -NITR0.4S14 SL; -ROSU5TAB5 PO
[2019-07-14] MEDS ORDERED: ADENOSINE 6MG/2ML INJECTION (J0153) As Ordered ONE (18:35)
[2019-07-14] MEDS ORDERED: AMIODARONE 150MG/3ML INJ (J0282) IVP STA (18:56)
[2019-07-14] MEDS: ADENOSINE 6MG/2ML INJECTION (J0153) IV STA (18:56)
[2019-07-14 18:58] LABS: BASO % 0.4 % (0.0-1.0); EOS # 0.1 10^3/uL (0.0-0.5); EOS % 0.7 % (0.0-3.0); HEMATOCRIT 39.6 % (36.0-47.0); HEMOGLOBIN 12.1 g/dl (12.0-15.5); LYMPH # 1.7 10^3/uL (1.5-5.0); LYMPH % 17.4 % (24.0-44.0); MEAN CORPUSCULAR HGB CONC 30.6 g/dl (32.0-36.5); MONO # 0.6 10^3/uL (0.0-0.8); MONO % 6.3 % (0.0-5.0); NEUTROPHILS # 7.4 10^3/uL (1.5-8.5); NEUTROPHILS % 74.8 % (36.0-66.0); PLATELET COUNT, AUTOMATED 212 10^3/uL (150-450); RED BLOOD COUNT 4.04 10^6/uL (4.00-5.40)
[2019-07-14] MEDS ORDERED: METOPROLOL TART 25 MG TABLET PO ONE (19:00)
--- NOTE | 2019-07-14 19:12 | ECGEPIP ---
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
--- NOTE | 2019-07-14 19:29 | REP ---
Clinical: Chest pain. Comparison: 12/25/2018. Findings: Cardiomegaly and chronic interstitial changes are appreciated. Superimposed mild pulmonary vascular congestion along with basilar atelectasis cannot definitively be excluded. No obvious effusion. No pneumothorax. Skeletal structures intact. Impression: 1. Cardiomegaly and stable chronic changes. 2. Cannot exclude subtle superimposed vascular congestion or basilar atelectasis. Electronically Signed by Chau Garcia MD 07/14/2019 07:20 P
[2019-07-14] MEDS: DOCUSATE SODIUM 100 MG CAP PO SCH (21:00)
[2019-07-14] MEDS ORDERED: ISOVUE-370 76% 100ML VIAL As Ordered ONE (21:30)
[2019-07-14 21:45] LABS: ALBUMIN 3.1 GM/DL (3.2-5.2); BILIRUBIN,DIRECT 0.2 MG/DL (0.0-0.2); BILIRUBIN,TOTAL 0.5 MG/DL (0.2-1.0); CALCIUM LEVEL 9.3 MG/DL (8.8-10.2); CK-MB VALUE MASS 7.4 NG/ML (<3.6); CREATININE FOR GFR 1.04 MG/DL (0.55-1.30); GLOMERULAR FILTRATION RATE 57.2 (>45); MAGNESIUM LEVEL 2.3 MG/DL (1.8-2.4); MB/CK RELATIVE INDEX 6.22 (< OR =4); POTASSIUM SERUM 4.6 MEQ/L (3.5-5.1); THYROID STIMULATING HORMONE 1.53 uIU/ML (0.358-3.740); TOTAL PROTEIN 7.5 GM/DL (6.4-8.2); TROPONIN I 2.26 NG/ML (< 0.10)
--- NOTE | 2019-07-14 22:18 | REPVR ---
PROCEDURE INFORMATION: Exam: CT Angiography Chest With Contrast Exam date and time: 07/14/2019 9:47 PM Age: 64 years old Clinical indication: Chest pain; Additional info: SOB; R/O pe TECHNIQUE: Imaging protocol: Computed tomographic angiography of the chest with intravenous contrast. 3D rendering: MIP and/or 3D reconstructed images were created by the technologist. Radiation optimization: All CT scans at this facility use at least one of these dose optimization techniques: automated exposure control; mA and/or kV adjustment per patient size (includes targeted exams where dose is matched to clinical indication); or iterative reconstruction. Contrast material: ISO 370; Contrast volume: 75 ml; Contrast route: IV; COMPARISON: CR PORTABLE CHEST X-RAY 07/14/2019 7:06 PM FINDINGS: Pulmonary arteries: Pulmonary arteries are enlarged. No central pulmonary embolism is seen. Evaluation of peripheral pulmonary arteries is limited due to excessive motion. Aorta: Unremarkable. No aortic aneurysm. No aortic dissection. Lungs: Multiple areas of atelectasis or scarring in both lungs. No airspace consolidation or masses. Pleural space: Unremarkable. No pneumothorax. No pleural effusion. Heart: Unremarkable. No cardiomegaly. No pericardial effusion. Lymph nodes: Unremarkable. No enlarged lymph nodes. Bones/joints: Skeletal degenerative changes are noted. Soft tissues: Unremarkable. IMPRESSION: 1. Motion limited exam. No central pulmonary embolism is seen. Evaluation of peripheral pulmonary arteries is very limited secondary to excessive motion. 2. Pulmonary artery enlargement suggesting pulmonary hypertension. Electronically signed by: Nicholas Mccracken On 07/14/2019 22:17:49 PM
[2019-07-14] MEDS ORDERED: HEPARIN DRIP 25,000 UNITS in IV 1 EA IV SCH (22:37)
[2019-07-14] MEDS ORDERED: ROSU5TAB5 PO (22:43)
[2019-07-14] MEDS ORDERED: AMLO2.5T3 PO (22:43)
[2019-07-14] MEDS ORDERED: NITR0.4S14 SL (22:44)
[2019-07-14] MEDS ORDERED: HEPARIN SOD (PORCINE) 5000UNITS/ML VIAL (J1644 PER 1000UNITS) IV ONE (22:45)
[2019-07-14] MEDS ORDERED: MULTCAP PO (22:54)
[2019-07-14 22:55] LABS: INR 1.17; PARTIAL THROMBOPLASTIN TIME 27.5 SECONDS (25.0-38.4); PROTHROMBIN TIME 14.6 SECONDS (11.8-14.0)
[2019-07-15] MEDS ORDERED: MAALOX 30 ML SUSP *UDC PO PRN (00:15)
[2019-07-15] MEDS ORDERED: MOM 30ML SUSPENSION UDC PO PRN (00:15)
[2019-07-15] MEDS ORDERED: HEPARIN DRIP 25,000 UNITS in IV 1 EA IV SCH (00:18)
--- NOTE | 2019-07-15 00:31 | HPEPDOC ---
General Date of Admission Jul 15, 2019 at 00:12 Date of Service: Jul 15, 2019 Chief Complaint The patient is a 64-year-old female admitted with a reason for visit of Atrial Flutter With Rvr. Source: Patient Exam Limitations: No limitations Timing/Duration: Other (today at 11:30 AM) Severity: Moderate Associated Symptoms: Other (palpitation and shortness of breath) History of Present Illness This is a 64 years old white female with past medical history of CVA with the rest her left upper and lower extremity weakness developed increased heart rate, palpitation and shortness of breath about 11:30 after she got out of the shower. Patient denies chest pain, nausea, vomiting, abdominal pain or diarrhea. In ED, patient was found to have various rhythms from SVT to a flutter and she received multiple medications to control her went red. Right now she is in normal sinus rhythm and offers no new complaints at the present time. Dr. Sanchez was called from ED and he will see the patient in a.m. Home Medications Scheduled Acetaminophen (Tylenol Extra Strength) 500 Mg Tablet, 1,000 MG PO DAILY, (Reported) Amlodipine Besylate (Amlodipine Besylate) 2.5 Mg Tablet, 2.5 MG PO DAILY, (Reported) Aspirin (Aspirin EC) 81 Mg Tablet.dr, 81 MG PO DAILY, (Reported) Glycopyrrolate/Formoterol Fum (Bevespi Aerosphere Inhaler) 10.7 Gm Hfa.aer.ad, 2 PUFFS INH BID, (Reported) Levothyroxine Sodium (Synthroid) 175 Mcg Tablet, 175 MCG PO DAILY, (Reported) Multivitamin (Multivitamins) 1 Each Capsule, 1 CAP PO DAILY, (Reported) Rosuvastatin Calcium (Rosuvastatin Calcium) 5 Mg Tablet, 5 MG PO DAILY, (Reported) Torsemide (Torsemide) 20 Mg Tab, 30 MG PO DAILY, (Reported) Scheduled PRN Nitroglycerin (Nitroglycerin) 0.4 Mg Tab.subl, 0.4 MG SL NITRO PRN for CHEST PAIN, (Reported) Tramadol HCl (Tramadol HCl) 50 Mg Tablet, 50 MG PO QID PRN for PAIN, (Reported) Allergies Coded Allergies: codeine (Verified Adverse Reaction, Mild, n/v, 12/25/18) Past Medical History Medical History CVA or with residual left upper and lower extremity weakness, COPD, morbid obesity, hypothyroidism Surgical History Tonsillectomy, cholecystectomy, myomectomy, hernia repairs 2. Small bowel obstruction surgery, right shoulder surgery, pilonidal cyst surgery Family History Family history reviewed. No history of cancer, diabetes or CVA Social History * Smoker: former Smoker Alcohol: Denies Drugs: denies A-FIB/CHADSVASC A-FIB History Current/History of A-Fib/PAF?: No Review of Systems Constitutional: Denies: Chills, Fever, Malaise, Night Sweats, Weakness, Fatigue, Weight Loss, Lethargy, Other Eyes: Denies: Pain, Vision change, Conjunctivae inflammation, Eyelid inflammation, Redness, Other ENT: Denies: Head Aches, Ear Pain, Dysphagia, Sinus Congestion, Post Nasal Drip, Sore Throat, Epistaxis, Other Symptoms Skin: Denies: Rash, Lesions, Jaundice, Bruising, Itching, Dry, Breakdown, Nail Changes, Other Pulmonary: Reports: Dyspnea Cardiovascular: Reports: Palpitations Gastrointestinal: Denies: Nausea, Vomiting, Abdominal Pain, Diarrhea, Constipa tion, Melena, Hematochezia, Other Symptoms Genitourinary: Denies: Dysuria, Frequency, Incontinence, Hematuria, Retention, Other Symptoms Hematologic: Denies: Bruising, Bleeding Excessively, Petecchia, Purpura, Enlarged Lymph Nodes, Other Hematologic Endocrine: Denies: Polydipsia, Polyphagia, Polyuria, Heat Intolerance, Cold Intolerance, Other Endocrine Sx Musculoskeletal: Denies: Neck Pain, Back Pain, Shoulder Pain, Arm Pain, Hand Pain, Leg Pain, Foot Pain, Joint Pain, Muscle Pain, Spasms, Other Symptoms Neurological: Denies: Weakness, Numbness, Incoordination, Change in speech, Confusion, Seizures, Other Symptoms Psych: Denies: Mood Normal, Anxiety, Depression, Memory Issues, Thoughts of Self Harm, Anger, Thoughts of Harming Other, Other Psych Physical Examination General Exam: Positive: Alert, Cooperative Eye Exam: Positive: PERRLA ENT Exam: Positive: Atraumatic, Mucous membr. moist/pink Neck Exam: Positive: Supple Chest Exam: Positive: Clear to auscultation, Normal air movement Heart Exam: Positive: Rate Normal, Normal S1, Normal S2 Abdomen Exam: Positive: Normal bowel sounds, Soft Extremity Exam: Positive: Normal pulses Skin Exam: Positive: Nl turgor and temperature Neuro Exam: Positive: Sensation Intact, Cranial Nerves 3-12 NL Psych Exam: Positive: Mood NL, Oriented x 3 Vital Signs Vital Signs Date Time Temp Pulse Resp B/P (MAP) Pulse Ox O2 Delivery O2 Flow Rate FiO2 07/14/19 23:50 59 20 95 Non-Rebreather 07/14/19 23:05 136/89 (105) 07/14/19 19:46 6.0 07/14/19 18:34 97.9 Laboratory Data Labs 24H Laboratory Tests 2 07/14/19 18:45: Immature Granulocyte % (Auto) 0.4, Neutrophils (%) (Auto) 74.8H, Lymphocytes (%) (Auto) 17.4L, Monocytes (%) (Auto) 6.3H, Eosinophils (%) (Auto) 0.7, Basophils (%) (Auto) 0.4, Neutrophils # (Auto) 7.4, Lymphocytes # (Auto) 1.7, Monocytes # (Auto) 0.6, Eosinophils # (Auto) 0.1, Basophils # (Auto) 0.0, Nucleated Red Blood Cells % (auto) 0.0, Prothrombin Time 14.6H, Prothromb Time International Ratio 1.17, Activated Partial Thromboplast Time 27.5 07/14/19 19:59: POC Glucose (Misc Panel) 114H, POC Sodium (Misc Panel) 138, POC Potassium (Misc Panel) 4.4, POC Chloride (Misc Panel) 99, POC Total CO2 (Misc Panel) 28.0H, POC Blood Urea Nitrogen (Misc Panel 26, POC Ionized Calcium (Misc Panel) 4.4L, POC C reatinine (Misc Panel) 1.0, POC Hematocrit (Misc Panel) 41.0 07/14/19 20:55: Anion Gap 1L, Glomerular Filtration Rate 57.2, Calcium Level 9.3, Magnesium Level 2.3, Total Bilirubin 0.5, Direct Bilirubin 0.2, Aspartate Amino Transf (AST/SGOT) 29, Alanine Aminotransferase (ALT/SGPT) 20, Alkaline Phosphatase 104, Total Creatine Kinase 119, Creatine Kinase MB 7.4H, Creatine Kinase MB Relative Index 6.22H, Troponin I 2.26*H, GA-Aob-W-Type Natriuretic Peptide 2976H, Total Protein 7.5, Albumin 3.1L, Albumin/Globulin Ratio 0.7L, Lipase 58L, Thyroid Stimulating Hormone (TSH) 1.530 CBC/BMP Laboratory Tests 07/14/19 18:45 07/14/19 20:55 Problems (1) Atrial flutter with rapid ventricular response Status: Acute Problem Text: 64 years old white female with past medical history of COPD, oxygen dependent, morbid obesity, hypothyroidism, remote history of CVA, presented with chief complaints of palpitation and shortness of breath. Subsequently was found to have a flutter with variable block, SVT. Also, with rapid ventricular rate. Patient received the amiodarone and beta blockers in the emergency room with conversion to normal sinus rhythm. Patient also had a CT angiogram done which did not show any PE yesterday shows cardiomegaly with Cipro, pulmonary vascular congestion, troponin is at 2.26. CBC, CMP within normal range and a BNP is 2976, lipase of 50 [facility] for further care and management Saline lock Dr. Sanchez was called by PA and he recommended IV anticoagulation and beta blockers till he sees patient in a.m. Will continue IV heparin as per protocol Diane start metoprolol 25 mg by mouth twice a day with holding parameters Will continue all home meds Echocardiogram has been ordered Elevated troponin, most likely secondary to type II OK/demand ischemia Clinically no evidence of pulmonary edema or congestive heart failure, hence will not start diuretics We will repeat a chest x-ray in a.m. again to rule out a pulmonary vascular congestion Serial troponins will be ordered Further recommendations as per cardiology Diet consistent carbohydrate diet DVT prophylaxis patient is on heparin infusion Bed rest (2) COPD (chronic obstructive pulmonary disease) Status: Chronic Problem Text: Stable continue home meds (3) Hypothyroidism Status: Chronic Problem Text: Stable continue home meds (4) Morbid obesity Status: Chronic Problem Text: Diet and exercise counseling Plan / VTE VTE Prophylaxis Ordered?: Yes GOSIA HAILE MD Jul 15, 2019 00:31
[2019-07-15 01:30] VITALS: BP 137/84
[2019-07-15 04:00] VITALS: BP 137/64
[2019-07-15] MEDS: LEVOTHYROXINE 150MCG TABLET (0.15MG) PO SCH (06:33)
[2019-07-15] MEDS: LEVOTHYROXINE 25MCG TABLET (0.025MG) PO SCH (06:33)
[2019-07-15 06:35] LABS: INR 1.28; PROTHROMBIN TIME 15.7 SECONDS (11.8-14.0)
[2019-07-15 06:52] LABS: TROPONIN I 2.47 NG/ML (< 0.10)
[2019-07-15 07:22] LABS: BASO % 0.5 % (0.0-1.0); EOS # 0.1 10^3/uL (0.0-0.5); HEMATOCRIT 37.5 % (36.0-47.0); HEMOGLOBIN 11.7 g/dl (12.0-15.5); LYMPH # 2.2 10^3/uL (1.5-5.0); LYMPH % 24.3 % (24.0-44.0); MEAN CORPUSCULAR HEMOGLOBIN 30.5 pg (27.0-33.0); MEAN CORPUSCULAR HGB CONC 31.2 g/dl (32.0-36.5); MEAN CORPUSCULAR VOLUME 97.9 fl (80.0-96.0); MONO # 0.7 10^3/uL (0.0-0.8); MONO % 7.3 % (0.0-5.0); NEUTROPHILS # 5.9 10^3/uL (1.5-8.5); NEUTROPHILS % 66.6 % (36.0-66.0); PLATELET COUNT, AUTOMATED 172 10^3/uL (150-450); RED BLOOD COUNT 3.83 10^6/uL (4.00-5.40); WHITE BLOOD COUNT 8.9 10^3/uL (4.0-10.0)
[2019-07-15] MEDS: HEPARIN SOD (PORCINE) 5000UNITS/ML VIAL (J1644 PER 1000UNITS) IV PRN ×2 (07:25→22:29)
[2019-07-15 07:58] LABS: ALBUMIN 2.9 GM/DL (3.2-5.2); ALT/SGPT 23 U/L (12-78); BILIRUBIN,TOTAL 0.7 MG/DL (0.2-1.0); BLOOD UREA NITROGEN 24 MG/DL (7-18); CALCIUM LEVEL 8.9 MG/DL (8.8-10.2); CARBON DIOXIDE LEVEL 33 MEQ/L (21-32); CHLORIDE LEVEL 101 MEQ/L (98-107); CREATININE FOR GFR 0.86 MG/DL (0.55-1.30); GLOMERULAR FILTRATION RATE > 60.0 (>45); GLUCOSE, FASTING 123 MG/DL (70-100); POTASSIUM SERUM 4.1 MEQ/L (3.5-5.1); SODIUM LEVEL 140 MEQ/L (136-145)
[2019-07-15 08:00] VITALS: BP 133/54
--- NOTE | 2019-07-15 08:05 | REP ---
Clinical: CHF. Comparison: 07/14/2019. Findings: Stable cardiomegaly along with prominent pulmonary vasculature, cephalization, increased interstitial markings, and lower lobe opacities are similar to prior examination. Differential diagnosis includes pulmonary vascular congestion and lower lobe infiltrates. No pneumothorax. Skeletal structures stable. Impression: Stable cardiomegaly and findings to suggest pulmonary vascular congestion versus bibasilar atelectasis/infiltrates. Electronically Signed by Chau Garcia MD 07/15/2019 07:56 A
[2019-07-15 08:29] LABS: ABG BASE EXCESS 5.9 (-2.0-2.0); ABG HCO3 31.3 MEQ/L (22.0-26.0); ABG O2 SATURATION 94.3 % (95.0-99.0); ABG PARTIAL PRESSURE CO2 48.8 mmHg (35.0-45.0); ABG PARTIAL PRESSURE O2 77.3 mmHg (75.0-100.0); ABG STANDARD HCO3 29.7 MEQ/L (22.0-26.0); ABG TOTAL CO2 32.8 MEQ/L (23.0-31.0); ABG pH (ARTERIAL) 7.425 UNITS (7.350-7.450)
--- NOTE | 2019-07-15 08:39 | ECGEPIP ---
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
--- NOTE | 2019-07-15 08:40 | ECGEPIP ---
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
[2019-07-15] MEDS ORDERED: METOPROLOL TART 25 MG TABLET PO SCH (09:00)
[2019-07-15] MEDS ORDERED: TORSEMIDE 20 MG TAB PO SCH (09:00)
[2019-07-15] MEDS ORDERED: PILL CUTTER 1 EACH XX PRN (09:15)
[2019-07-15] MEDS: TORSEMIDE (DEMADEX) 50 MG PER 1/2 TAB PO SCH (09:38)
[2019-07-15] MEDS: DOCUSATE SODIUM 100 MG CAP PO SCH ×2 (09:38→20:41)
[2019-07-15] MEDS: ASPIRIN 81 MG ENTERIC TAB PO SCH (09:38)
[2019-07-15] MEDS: METOPROLOL TART 12.5 MG PER 1/2 TAB PO SCH ×2 (09:39→20:44)
[2019-07-15] MEDS: ROSUVASTATIN 10 MG TAB (CRESTOR) PO SCH (09:39)
[2019-07-15 12:00] VITALS: BP 129/71
--- NOTE | 2019-07-15 12:59 | IPNPDOC ---
Text Note Date of Service The patient was seen on 07/15/19. NOTE Subjective: Patient seen and examined at bedside. States she is feeling somewhat better, but still short of breath. Denies chest pain, abdominal pain, N/V/D, headaches, changes in vision. Objective: General: NAD, lying comfortably in bed HEENT: NC/AT, EOMI Lungs: diminished breath sound b/l Heart: +S1S2, RRR Abd; soft, NT, +BS, morbidly obese Ext: trace edema, difficult to assess A/P: 64 yo female presents for palpitations and shortness of breath that occurred while showering. On presentation to ED found to be in SVT. #SVT/a flutter? - responded well to medications - now in normal sinus rhythm - follow as per cardiology - assistance appreciated #SOB/COPD - baseline chronic hypoxic respiratory requiring 2-3 L supplemental oxygen - CTA negative for PE - etiology likely multi-factorial - pulmonary hypertension, untreated TERRY, obesity hypoventilation syndrome, possibly fluid overload - supplemental oxygen as needed, incentive spirometry, respiratory treatments, steroid therapy - pulmonology consultation pending, echo pending #troponinemia - likely demand ischemia - trending down #hypothyroidism - continue synthroid #morbid obesity - dietary consultation pending - complicates medical care #hypothyroidism - continue synthroid #DLP - continue statin therapy #HTN - torsemide, lopressor #DVT prophylaxis - heparin SC VS,Fishbone, I+O VS, Fishbone, I+O Laboratory Tests 07/14/19 18:45 07/14/19 20:55 07/15/19 06:07 07/15/19 06:12 Vital Signs Date Time Temp Pulse Resp B/P (MAP) Pulse Ox O2 Delivery O2 Flow Rate FiO2 07/15/19 12:00 98.1 69 20 129/71 (90) 93 High Flow Cannula 8.0 I&O- Last 24 Hours up to 6 AM 07/15/19 05:59 Output Total 200 ml Balance -200 ml MEHDI RECINOS MD Jul 15, 2019 12:59
[2019-07-15 13:30] VITALS: O2SAT 90
[2019-07-15] MEDS: TIOTROPIUM INHALER/CAPSULE (SPIRIVA) INH SCH (14:44)
[2019-07-15 16:00] VITALS: BP 135/73
[2019-07-15] MEDS: traMADol 50 MG TAB PO PRN (18:46)
--- NOTE | 2019-07-15 18:47 | CR ---
DATE OF CONSULTATION: 07/15/2019 Surekha Eid is a 64-year-old female with past medical history of morbid obesity, obstructive sleep apnea, and chronic obstructive pulmonary disease (COPD), on 3 liters of home oxygen, who presented to the emergency department (ED) on 07/14/2019 with shortness of breath and palpitations. The patient reports that around 11 a.m. she was getting out of the shower, and she started to feel palpitations and was short of breath and somewhat dizzy. She said that it persisted throughout the afternoon until about 5 or 6 p.m., when she went to urgent care but then went straight to the emergency department (ED) afterward. She was not able to take her blood pressure or heart rate during this time. In the ED, she was found to have a heart rate of about 190. Of note, she reports that on 06/29/2019, she was sitting at home, and she felt as though she had a "vice weaver apprentice on her heart," which lasted about 30-40 second and then stopped. The patient also has a history of cerebrovascular accident (CVA) in 2018 and a transient ischemic attack (TIA) in 2019. She follows with Dr. Smart for her pulmonology care, and she uses a continuous positive airway pressure (CPAP) nightly. She has never seen a inspector cold working before, but she does know that she has pulmonary hypertension, as she has been told by Dr. Smart as such. This morning she denies any chest pain, chest discomfort. She states her breathing is back to normal. She does not have any residual weakness from any of her strokes. Her heart rate is in the 60s in normal sinus rhythm with frequent premature ventricular contractions (PVCs). Throughout this entire event, she did not have any chest pain as well. Also in the ED, she was found to have elevated troponin at 2.26, which trended up to 2.47. Otherwise, she has been stable since her arrival yesterday. PAST MEDICAL HISTORY: 1. COPD, on 3 liters home oxygen. 2. She has a history of CVA. 3. History of TIA. 4. She is morbidly obese. 5. She has a history of pulmonary hypertension. Last echo was done in 2018 with a right ventricular systolic pressure (RVSP) of 110. 6. She has hypothyroidism. SURGICAL HISTORY: 1. Tonsillectomy. 2. Cholecystectomy. 3. Open myomectomy. 4. Hernia repair times two. 5. She has had small-bowel obstruction surgery. 6. Right shoulder surgery. 7. Pilonidal cyst surgery. FAMILY HISTORY: No history of coronary artery disease (CAD), diabetes, or stroke. No history of cancers. Noncontributory. SOCIAL HISTORY: She is former smoker. She quit several years ago, but she was a heavy smoker prior to that. She denies any alcohol and denies any other drugs. She lives at home with her significant other in [place]. ALLERGIES: She has an allergy to CODEINE. HOME MEDICATIONS: - Tylenol Extra Strength 100 mg by mouth daily - amlodipine 2.5 mg by mouth daily - aspirin 81 mg by mouth daily - Bevespi inhaler 10.7 grams HFA, two puffs inhaled twice daily - levothyroxine 175 mcg by mouth daily - multivitamin one capsule by mouth daily - rosuvastatin 5 mg by mouth daily - torsemide 30 mg by mouth daily - as-needed nitroglycerine and as-needed tramadol 50 mg four times a day for pain REVIEW OF SYSTEMS: A 10-point review of systems was reviewed and was negative and as described in history of present illness (HPI). OBJECTIVE: VITAL SIGNS: Temperature 97.1, pulse 59, respiratory rate 22, blood pressure 133/54, pulse oximetry 91% on 10 liters of nasal cannula. GENERAL: Morbidly obese, lying in bed flat. Calm, cooperative, very pleasant. HEENT: Her mucous membranes are moist. Her pupils are equally round and reactive to light. Extraocular movements are intact. She has no scleral icterus. NECK: Supple. No thyromegaly. No lymphadenopathy. RESPIRATORY: She has faint crackles at the bases bilaterally. Otherwise, no adventitious breath sounds are appreciated. HEART: She has a very prominent S2 louder than S1. She is regular rate and rhythm with frequent PVCs. Otherwise, no murmurs, rubs, or gallops are appreciated. ABDOMEN: Obese, soft, nontender to palpation. There is a healed scar from her cholecystectomy in the midline. Otherwise, positive bowel sounds. No masses. No organomegaly. LOWER EXTREMITIES: She has about 2+ pitting edema in the lower extremities bilaterally. SKIN: She has some redness or chronic venous stasis changes in her legs bilaterally. No evidence of infection. LYMPHATIC: She has no enlarged lymph nodes in the groin or the neck. NEUROLOGIC: She has strength 5/5 in both upper and lower extremities. She has no loss of sensation, and her cranial nerves II-XII are intact with no obvious focal deficit. PSYCHIATRIC: She has normal mood and normal affect. LABORATORY DATA: Today demonstrate a CBC which shows white blood cell count of 8.9, hemoglobin 11.7, hematocrit 37.5, platelet count of 172. She had an ABG done at 8:05 a.m. this morning, which showed 7.425, 48, and 77. Chemistries: Sodium 140, potassium 4.1, chloride 101, carbon dioxide 33, BUN 24, creatinine 0.86. Her fasting glucose was 123. Her last troponin was 2.47, up from 2.26. Her BNP was 2976. Her albumin is 2.9. PT was 15.7 and PTT was 46. IMAGING She had a chest x-ray done this morning, which demonstrates stable cardiomegaly and findings to suggest pulmonary vascular congestion versus bibasilar atelectasis or infiltrate. She did have a CT angiogram of the chest done yesterday in the ED with the findings of enlarged pulmonary arteries. No central pulmonary embolism is seen. Evaluation of peripheral pulmonary arteries is limited due to excessive motion. Findings suggestive of pulmonary hypertension. Her last echo was done 12/30/2017, which read that her right ventricular systolic pressure was found to have 116. Normal sinus rhythm. She has mild concentric left ventricular hypertrophy with obvious septal flattening related to right ventricular pressure overload, yet preserved global resting left ventricular systolic function. Moderately dilated inferior vena cava (IVC) with absent respiratory collapse, in keeping with elevated central venous pressure or right heart pressure, and subtle mitral annular thickening but normal leaflet thickness and excursion with no posterior systolic buckling and only trace insufficiency. ASSESSMENT: This is a 64-year-old female with morbid obesity and pulmonary hypertension who presented with shortness of breath and palpitations, found to be tachycardic, responsive to beta blockers overnight. Her pulmonary hypertension is severe, and subsequent echo is pending. PLAN: At this time, the patient has been already started on anticoagulation with heparin drip. I have increased her torsemide to 50 mg daily and have stopped her amlodipine due to lower extremity swelling. In addition, I have decreased her metoprolol to 12.5 mg twice a day, and we are awaiting an echocardiogram to be done today. Given that this patient has very severe pulmonary hypertension with an elevated right ventricular systolic pressure (RVSP), I would recommend that she have a dietary consult for very rapid weight loss, as her prognosis is about 1 year, if not less. She will need someone to bring her CPAP in for her to sleep with at night, and eventually she will need a right heart catheterization to further study her pulmonary hypertension. Her troponins were elevated, most likely secondary to prolonged tachycardia in the 190s. It seems as though she was tachycardic for about 5-6 hours yesterday. In addition, I have sought out the records of Dr. Smart, who reports that she is quite compliant with her CPAP, and her last echo prior to 2018 was done in 2016, but her RVSP at that time was only 80. We will continue to follow this patient alongside with you, and if you have any questions, please free to call us. Addendum MD Tyesha: I have seen and examined the patient with . In principle agree with her assessment and plan. Please see separately dictated note. MTDD
[2019-07-16] VITALS: BP 131/59
[2019-07-16] MEDS ORDERED: diphenhydrAMINE 25MG CAP PO ONE (01:15)
[2019-07-16] MEDS: ACETAMINOPHEN TAB 650MG DOSE (2X325MG) PO PRN (01:24)
[2019-07-16 04:00] VITALS: BP 117/86
[2019-07-16 04:01] LABS: HEMATOCRIT 36.7 % (36.0-47.0); HEMOGLOBIN 11.3 g/dl (12.0-15.5); MEAN CORPUSCULAR HEMOGLOBIN 30.3 pg (27.0-33.0); MEAN CORPUSCULAR HGB CONC 30.8 g/dl (32.0-36.5); MEAN CORPUSCULAR VOLUME 98.4 fl (80.0-96.0); PLATELET COUNT, AUTOMATED 161 10^3/uL (150-450); RED BLOOD COUNT 3.73 10^6/uL (4.00-5.40); WHITE BLOOD COUNT 8.8 10^3/uL (4.0-10.0)
[2019-07-16 04:25] LABS: ALBUMIN 2.8 GM/DL (3.2-5.2); ALT/SGPT 17 U/L (12-78); BILIRUBIN,TOTAL 0.5 MG/DL (0.2-1.0); BLOOD UREA NITROGEN 25 MG/DL (7-18); CALCIUM LEVEL 8.6 MG/DL (8.8-10.2); CARBON DIOXIDE LEVEL 35 MEQ/L (21-32); CHLORIDE LEVEL 102 MEQ/L (98-107); CREATININE FOR GFR 0.84 MG/DL (0.55-1.30); GLOMERULAR FILTRATION RATE > 60.0 (>45); GLUCOSE, FASTING 113 MG/DL (70-100); MAGNESIUM LEVEL 2.1 MG/DL (1.8-2.4); POTASSIUM SERUM 3.4 MEQ/L (3.5-5.1); SODIUM LEVEL 141 MEQ/L (136-145); TOTAL PROTEIN 6.7 GM/DL (6.4-8.2)
[2019-07-16] MEDS: LEVOTHYROXINE 150MCG TABLET (0.15MG) PO SCH (06:44)
[2019-07-16] MEDS: LEVOTHYROXINE 25MCG TABLET (0.025MG) PO SCH (06:44)
--- NOTE | 2019-07-16 06:49 | CR ---
DATE OF CONSULTATION: 07/15/2019 I was called to see this 64-year-old female known to our practice. She follows with Dr. Smart on an outpatient basis and was last seen in the office in February. The patient has chronic obstructive pulmonary disease (40 pack-year cigarette smoking, quit 2013), obstructive sleep apnea syndrome (RDI of 14 with desaturations to 60%) on C-PAP since 2007 and compliant (18 cm with 3 liters of oxygen bled through the system), pulmonary hypertension and obesity hypoventilation syndrome (pCO2 stable since 2009). The patient presented with palpitations and was found to be in multifocal atrial tachycardia in the emergency department and was converted to a sinus rhythm with medications and she remains hypoxemic. At baseline, the patient requires 3 liters of oxygen via nasal cannula and desaturates with activity. PAST MEDICAL HISTORY: Includes obesity, cerebrovascular accident (lacunar), diabetes mellitus, and hypothyroidism. HOME MEDICATIONS: Include Bevespi and torsemide. ALLERGIES: She has no medication allergies. SOCIAL HISTORY: Reformed smoker. She has a 40 pack-year history. She does not take alcohol. She has a supportive local family. FAMILY HISTORY: Not contributory to the current illness. REVIEW OF SYSTEMS: Constitutional: She has noted an 8 pound weight gain over the past 6 months and no other changes in appetite or constitutional symptoms. HEENT: There is no impairment of vision, smell or hearing. Cardiovascular: She denies a prior history of palpitations. Does not experience orthopnea, but has been using pressure therapy for some years. No history of paroxysmal nocturnal dyspnea. She has chronic extremity edema which has been worsening. Pulmonary: See above. GI: There is no history of hepatitis, pancreatitis or gallbladder disease. : No frequency, dysuria or kidney stones. Endocrine: She is a diabetic and hypothyroid. Neurologic: No easy bruising or bleeding. Neurologic: No history of seizures. She did have lacunar strokes with no residual. Musculoskeletal: She has muscle aches and cramps, low back pain. Allergies/Immunology: No specific environmental sensitivities are reported. PHYSICAL EXAMINATION: Her temperature is 98.1, pulse rate 69, respirations 20, blood pressure 129/71. She is awake, alert, oriented and in no acute distress. HEENT: Pupils are equal, round and react to light. Oral mucosa is pink. Neck is supple, grove, without jugular venous distention. Obvious carotid upstroke is sluggish, but there is no bruit. Heart sounds are regular without appreciable murmur, quite distant. Breath sounds diminished bilaterally. There are crepitant rales in the bases, right slightly greater than left. No dullness. No fremitus. Chest is symmetric. Moves symmetrically. Expiratory phase is mildly prolonged. Abdomen is soft and grossly obese. Extremities: Show tense edema bilaterally and skin changes from chronic edema. Peripheral pulses are barely palpable. DIAGNOSTIC STUDIES: Chest x-ray shows cardiomegaly and prominent interstitial markings. Her white cell count is 8.9, hemoglobin 11.7, hematocrit 37.5 and platelet count 172,000. Electrolytes are sodium 140, potassium 4.1, chloride 101, CO2 33, BUN 24, creatinine 0.86, and glucose 123. Her beta nitride peptide was 2976. Troponin was 2.26 and now 2.47. AST is 29, ALT 20, TSH 1.53. Arterial blood gases show pH 7.42, pCO2 48 and pO2 77. IMPRESSIONS: 1. Hypoxemia, acute on chronic, secondary to pulmonary edema. 2. Chronic obstructive pulmonary disease, moderate. 3. Obstructive sleep apnea syndrome, severe. 4. Obesity hypoventilation syndrome. 5. Pulmonary hypertension, type 3. RECOMMENDATIONS: 1. I agree with diuresis and would target a negative fluid balance over time. 2. I would restart her anticholinergic inhaled therapy. The hospital does not stock Bevespi, and I will write for [facility]. 3. The patient should use her home C-PAP device. Her family has been contacted and will deliver the device. We will arrange for oxygen flow rate commensurate with her need. Thank you for allowing me to consult in the care of this patient. If there are questions, please do not hesitate to contact me.
[2019-07-16] MEDS: TIOTROPIUM INHALER/CAPSULE (SPIRIVA) INH SCH (07:15)
[2019-07-16] MEDS ORDERED: POTASSIUM CHLORIDE 10 MEQ SR TABLET PO ONE (07:30)
[2019-07-16 08:00] VITALS: BP 130/86
--- NOTE | 2019-07-16 08:56 | CR ---
DATE OF CONSULTATION: 07/15/2019 REFERRING PHYSICIAN: Dr. Payam Huizar. INDICATION: Atrial flutter. HISTORY OF PRESENT ILLNESS: Mrs. Eid is previously unknown to me. She is a rather delightful 64-year-old female who was admitted to [facility] yesterday. She said that her symptoms started around 10:30 a.m. She was taking a shower and as she was drying herself outside of the shower stall she started experiencing palpitations. She eventually was able to call her and he took her to urgent care but it was not until about 5:00 p.m. She was found to be very tachycardic with ventricular rate around 190 beats per minute. She reportedly got a total three doses of adenosine IV with that failed to restore sinus rhythm. She was then transported to [facility] ([facility]) emergency room (ER) where additional dose of adenosine was administered. Per my communication with ER physician, it revealed that there were underlying flutter waves. But eventually she converted to sinus rhythm after a single dose of IV amiodarone. In spite of converting to sinus rhythm, she continued to be rather hypoxic and CT angiography of the chest was performed that revealed no evidence for pulmonary embolism but it was poor quality study with significant motion artifact. Today at bedside this morning, the patient tells me that she is probably close to her baseline even though her shortness of breath is probably slightly worse. She does have a longstanding history of chronic obstructive pulmonary disease (COPD) and sleep apnea for which she has been followed by Dr. Smart. She had an echocardiogram in our facility 2 years ago that revealed severe pulmonary hypertension and estimated pulmonary artery pressure over 110 mmHg. To the best of her understanding, there has not been any further investigation in this matter. I actually contacted her primary care physician's office and besides her being followed by pulmonary, there does not appear to be any indication that she was ever evaluated in the pulmonary hypertension center. PAST MEDICAL HISTORY: 1. Morbid obesity. 2. Obstructive sleep apnea (TERRY) 3. Chronic obstructive pulmonary disease (COPD). 4. Hypothyroidism. 5. Hypercholesterolemia. 6. Cerebrovascular accident (CVA). PAST SURGICAL HISTORY: Tonsillectomy. Cholecystectomy. Hernia repair. Small bowel surgery. Right shoulder surgery. Pilonidal cyst surgery. OUTPATIENT MEDICATIONS: - amlodipine 2.5 mg daily (started recently) - aspirin 81 - bronchodilators - levothyroxine 175 mcg a day - rosuvastatin 5 mg a day - torsemide 30 mg a day ALLERGIES: She reports allergies to CODEINE. FAMILY HISTORY: Not positive for early coronary artery disease (CAD) or congestive heart failure (CHF). SOCIAL HISTORY: The patient is , lives with . 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 She used to smoke but quit about 10 years ago. No significant alcohol use. REVIEW OF SYSTEMS: She denies any recent infection, fever, chills, nausea, vomiting and diarrhea. She has chronic shortness of breath, typically [employer] class III to IV and has been on 3 liters of oxygen by nasal cannula chronically for several years. Denies any history of current coronary artery disease, even though she reported that she had approximately 10-minute episode of severe chest discomfort approximately 3 weeks ago without any obvious trigger. No abdominal pain. No genitourinary symptoms. No bleeding history. She does have chronic peripheral edema that is typically quite significant according to the patient. No history of syncope. PHYSICAL EXAMINATION: The patient is morbidly obese white female very pleasant, alert, oriented times three in no distress. Vital signs: This morning blood pressure 133/54, heart rate in the high 50s low 60s sinus rhythm. She is afebrile. Saturation was 91% on 8 liters of oxygen by nasal cannula. Alert and oriented and appropriate. He jugular venous pulse (JVP) is very difficult to border patrol officer due to her body habitus. It does not appear grossly high but it can be certainly underestimated. Lungs have very fair movement due to morbid obesity. It is difficult to estimate. Cardiac exam: I am unable to palpate precordial impulse due to body habitus. She has a loud S2. I do not appreciate any murmur, gallop or rub. Abdomen is morbidly obese but soft and nontender without obvious organomegaly or guarding. Extremities: 2+ edema to knees. There is some mild redness to her shins. Peripheral pulses are palpable. Neurologically she is grossly intact. LABORATORY: INR 1.3. Basic metabolic panel was normal. Liver function tests were normal. She had troponin I yesterday 2.26, this morning 2.45 and proBNP is 3,000, albumin 2.9. ABGs performed this morning revealed pH 7.42, pCO2 49, pO2 77 and saturation 94% on supplemental oxygen. Chest x-ray is consistent with cardiomegaly and prominent pulmonary arteries and diffuse infiltrates. CT CHEST: As above. ECG reveals initially narrow complex tachycardia with right axis deviation and poor R-wave progression. After she reverted to sinus rhythm she remains to have prominent right axis deviation, incomplete right bundle branch block and repolarization abnormalities all suggestive of pulmonary hypertension. ASSESSMENT/PLAN: Mrs. Eid is a 64-year-old morbidly obese female who has likely very longstanding history of severe pulmonary hypertension based on echocardiogram 2 years ago performed in our institution when she presented with stroke. Her pulmonary artery pressure was over 110 mmHg. Currently, she presented with narrow complex tachycardia most likely representing atypical flutter and converted to sinus rhythm with single dose of amiodarone. She certainly is a very seriously ill woman, even though her condition is relatively chronic and the only new development is atrial flutter. My plan is to not to administer additional doses of amiodarone and keep her only very low-dose beta-stuart. If there is a relapse of atrial flutter, then we will have to continue antiarrhythmics. She will be started on anticoagulation. At this point she has at least two indications which is severe pulmonary hypertension as well as atrial flutter. Because there is a tentative plan to pursue cardiac catheterization, I would recommend to continue heparin in the short run. The second and probably leading problem is severe pulmonary hypertension. The etiology can be secondary to pulmonary disease but there could be a component of left-sided heart failure as well. She certainly has very prominent right-sided heart failure and I advance the dose of diuretics to torsemide 50 mg daily. I do expect that there is at least 10 pounds of water excess weight. Ultimately, I would like to transfer the patient to [facility] in order to accomplish right and left heart catheterization. Even though her troponin is elevated I suspect it is a consequence of approximately 8 hours of severe tachycardia and probably is not reflective of underlying coronary artery disease. But on the other hand, we need to assess hemodynamics of pulmonary hypertension and she may need specialized treatment. Before this is accomplished, I will obtain an echocardiogram and hopefully we will accomplish at least some diuresis. Also we will need to review pulmonary records so we have a better information about her pulmonary condition. The importance of CPAP is critical and she needs to follow with it while in the hospital. I will follow the patient with you. MARJORIE
[2019-07-16] MEDS ORDERED: PREVNAR 13 VACCINE SYRINGE (CPT CODE:90670) IM ONE (09:00)
[2019-07-16] MEDS ORDERED: SPIRONOLACTONE 12.5MG PER 1/2 TABLET PO SCH (09:00)
[2019-07-16] MEDS: SPIRONOLACTONE 25 MG TAB PO SCH (09:05)
[2019-07-16] MEDS: ASPIRIN 81 MG ENTERIC TAB PO SCH (09:06)
[2019-07-16] MEDS: METOPROLOL TART 12.5 MG PER 1/2 TAB PO SCH ×2 (09:06→21:06)
[2019-07-16] MEDS: DOCUSATE SODIUM 100 MG CAP PO SCH ×2 (09:06→21:06)
[2019-07-16] MEDS: TORSEMIDE (DEMADEX) 50 MG PER 1/2 TAB PO SCH (09:07)
[2019-07-16] MEDS: ROSUVASTATIN 10 MG TAB (CRESTOR) PO SCH (09:07)
--- NOTE | 2019-07-16 11:50 | IPNPDOC ---
Text Note Date of Service The patient was seen on 07/16/19. NOTE Subjective: Patient seen and examined at bedside. States she is feeling somewhat better, but still short of breath. Denies chest pain, abdominal pain, N/V/D, headaches, changes in vision. Objective: General: NAD, lying comfortably in bed HEENT: NC/AT, EOMI Lungs: diminished breath sound b/l Heart: +S1S2, RRR Abd; soft, NT, +BS, morbidly obese Ext: trace edema, difficult to assess A/P: 64 yo female presents for palpitations and shortness of breath that occurred while showering. On presentation to ED found to be in SVT/MFAT, converted NSR, complicated with acute/chronic hypoxic respiratory failure. #tachyarrhythmia - resolved - now in NSR - responded well to medications - now in normal sinus rhythm - follow as per cardiology - assistance appreciated #acute/chronic hypoxic respiratory failure - multi factorial - secondary to COPD, TERRY, OHS, pulmonary hypertension and fluid overload - baseline chronic hypoxic respiratory requiring 2-3 L supplemental oxygen - CTA negative for PE - supplemental oxygen as needed, incentive spirometry, respiratory treatments, steroid therapy - diurese - pulmonology consultation appreciated, echo pending #troponinemia - likely demand ischemia - trending down #hypothyroidism - continue synthroid #morbid obesity - dietary consultation pending - complicates medical care #hypothyroidism - continue synthroid #DLP - continue statin therapy #HTN - torsemide, lopressor #DVT prophylaxis - heparin SC Dispo: possible transfer to [facility] for cardiac cath VS,Fishelhame, I+O VS, Fishelhame, I+O Laboratory Tests 07/16/19 03:49 Vital Signs Date Time Temp Pulse Resp B/P (MAP) Pulse Ox O2 Delivery O2 Flow Rate FiO2 07/16/19 09:06 96 130/86 07/16/19 08:00 96.7 22 90 High Flow Cannula 8.0 I&O- Last 24 Hours up to 6 AM 07/16/19 06:00 Intake Total 1110 ml Output Total 3200 ml Balance -2090 ml MEHDI RECINOS MD Jul 16, 2019 11:50
[2019-07-16 12:00] VITALS: BP 146/81
[2019-07-16] MEDS: traMADol 50 MG TAB PO PRN ×2 (13:41→21:23)
[2019-07-16 16:00] VITALS: BP 146/77
--- NOTE | 2019-07-16 16:14 | IPN ---
DATE: 07/16/2019 Ms. Eid was seen and examined at the bedside this morning. She reports that she is feeling about the same as yesterday. She continues to require oxygen, and today she is using 8 liters high-flow nasal cannula. She reports that she slept well, and her continuous positive airway pressure (CPAP) machine is observed at the bedside. She is currently eating breakfast. We had a discussion with her regarding her pulmonary hypertension and the need for possible transfer to [facility] for right heart catheterization procedure. The patient seemed to be quite shocked with this information but is agreeable for transport. Again we stressed the need for aggressive diuresis at this time and for changes to her health going forward. She denies any worsened shortness of breath. No palpitations. No lightheadedness. No dizziness. On exam, it is evident that she is currently in atrial fibrillation, and there were no issues reported from overnight. OBJECTIVE: Her vital signs are temperature 96.7, pulse 56, respiratory rate 22, blood pressure 130/86, pulse oximetry 90% on 8 liters high-flow nasal cannula. Her telemetry from overnight was reviewed and is significant for several episodes of bradycardia, around 40-45. She had one episode of almost two to three beats of ventricular tachycardia in the high 80s-90s. Otherwise, she was normal sinus rhythm. GENERAL: She is morbidly obese, sitting up in bed, calm cooperative, very pleasant. HEENT: Her mucous membranes are moist. Her pupils are equally round and reactive to light. There may possibly be some dysconjugate gaze recognized. Extraocular movements are intact. She has no scleral icterus. NECK: Supple. No thyromegaly. No lymphadenopathy. She does have elevated jugular venous distention (JVD) estimated at 8-9 cm above the sternal angle. RESPIRATORY: She has faint crackles at the bases bilaterally. Otherwise, no adventitious breath sounds are appreciated. HEART: She has a very prominent S2 louder than S1. She is irregularly irregular. Otherwise, no murmurs, rubs, or gallops are appreciated. ABDOMEN: Soft, obese, nontender to palpation. Healed scar from her cholecystectomy in the midline. Otherwise, positive bowel sounds. No masses. No organomegaly. LOWER EXTREMITIES: She has still about 2+ pitting edema in her lower extremities bilaterally. SKIN: She has some redness or chronic venous stasis changes in her legs bilaterally. No evidence of infection. LYMPHATIC: She has no enlarged lymph node in the groin or the neck. NEUROLOGIC: She has strength 5/5 in both upper and lower extremities. She has no loss of sensation. Cranial nerves II-XII are intact with no obvious focal deficits. PSYCHIATRIC: She has normal mood and normal affect. LABORATORY DATA: For today, include CBC that demonstrates a white blood cell count of 8.8, hemoglobin 11.3, and a platelet count of 161. Chemistries demonstrates a sodium 141, potassium 3.4, chloride 102. Her BUN is 25 and her creatinine 0.84. Her calcium is 8.6. Her albumin is 2.8. Another troponin has been ordered, and it is pending at this time. IMAGING: She had a chest x-ray done yesterday morning, which demonstrated stable cardiomegaly and findings to suggest pulmonary vascular congestion versus basilar atelectasis versus infiltrates. ASSESSMENT: This is a 64-year-old female with morbid obesity and severe pulmonary hypertension, who presented with shortness of breath and palpitations, found to be tachycardic and in atrial fibrillation. Her rate is somewhat controlled this morning. Echo is still pending. PLAN: At this time I have made her echo stat, as we will need to have this done and read prior to her possible transfer to [facility] for right heart catheterization. We think that this is the best course of management given her severely elevated right-sided pressures that were detected 2 years go when she had her stroke. I procured her last pulmonary function tests from Dr. Smart's office, which demonstrate an FEV1 of 59% of predicted, which demonstrates basically a borderline obstructive index with favorable bronchodilator response. We also had a discussion with the patient regarding the need for transport, and she agreed to doing so. I have also put her on 25 mg daily of spironolactone given her hypokalemia and the need for aggressive diuresis. She urinated about 2500 mL overnight, which is quite acceptable, but she still has a ways to go in terms of her diuresis. Therefore, if we can diurese her appropriately over the next few days, I foresee the transfer to [facility] to be imminent, most likely by the end of this week, if not, the beginning of next week. She is to continue using her CPAP. I have ordered an EKG for this atrial fibrillation that she is in this morning, and we will continue to aggressively diurese her until we are able to transfer her. Addendum MD Tyesha: Patient was seen and examined with . Tentative plan for transfer to [facility] for right and left heart cathetrization. In the interim continue anticoagulation and diuresis. Please do not start NOAC. MTDD
--- NOTE | 2019-07-16 19:01 | ECGEPIP ---
[facility] Test Date: 2019-07-16 Pat Name: SELENA LUCAS Department: Room: T4771-06 Gender: Female Otolaryngology Nurse: JEANNE : 1955 Requested By: YEHUDA SIEGEL Order Number: [id number] Reading MD: Tyrell Diane Measurements Intervals [place] Rate: 88 P: 1 UT: 177 QRS: 123 QRSD: 131 T: -63 QT: 395 QTc: 480 Interpretive Statements Sinus rhythm with frequent PACs versus multifocal atrial rhythm Right axis deviation with incomplete RBBB, slow precordial R wave progression and p persistent S waves V5 and V6; body habitus versus pulmonary disease. Inferoapical ST/T wave abnormalities unchanged from 07/14/19. Electronically Signed on 07-16-2019 19:00:50 EDT by Tyrell Diane
[2019-07-16 20:00] VITALS: BP 128/75
[2019-07-16] MEDS ORDERED: zolPIDEM TARTRATE 5 MG TAB PO ONE (21:15)
[2019-07-17] VITALS (8 sets, daily range): BP systolic 122–144; BP diastolic 60–87; O2SAT 91–92
[2019-07-17] MEDS: ACETAMINOPHEN TAB 650MG DOSE (2X325MG) PO PRN ×2 (00:54→18:08)
[2019-07-17] MEDS: LEVOTHYROXINE 150MCG TABLET (0.15MG) PO SCH (06:00)
[2019-07-17] MEDS: LEVOTHYROXINE 25MCG TABLET (0.025MG) PO SCH (06:00)
[2019-07-17] MEDS: TIOTROPIUM INHALER/CAPSULE (SPIRIVA) INH SCH (07:18)
[2019-07-17 07:30] LABS: BASO % 0.2 % (0.0-1.0); EOS # 0.2 10^3/uL (0.0-0.5); HEMATOCRIT 39.3 % (36.0-47.0); HEMOGLOBIN 11.9 g/dl (12.0-15.5); LYMPH # 1.6 10^3/uL (1.5-5.0); LYMPH % 20.1 % (24.0-44.0); MEAN CORPUSCULAR HGB CONC 30.3 g/dl (32.0-36.5); MONO # 0.6 10^3/uL (0.0-0.8); MONO % 7.2 % (0.0-5.0); NEUTROPHILS # 5.6 10^3/uL (1.5-8.5); NEUTROPHILS % 69.3 % (36.0-66.0); PLATELET COUNT, AUTOMATED 175 10^3/uL (150-450); RED BLOOD COUNT 3.97 10^6/uL (4.00-5.40); WHITE BLOOD COUNT 8.1 10^3/uL (4.0-10.0)
[2019-07-17 07:59] LABS: ALT/SGPT 18 U/L (12-78); BILIRUBIN,TOTAL 0.7 MG/DL (0.2-1.0); BLOOD UREA NITROGEN 21 MG/DL (7-18); CALCIUM LEVEL 8.6 MG/DL (8.8-10.2); CARBON DIOXIDE LEVEL 37 MEQ/L (21-32); CHLORIDE LEVEL 101 MEQ/L (98-107); CREATININE FOR GFR 0.82 MG/DL (0.55-1.30); GLOMERULAR FILTRATION RATE > 60.0 (>45); GLUCOSE, FASTING 86 MG/DL (70-100); POTASSIUM SERUM 3.6 MEQ/L (3.5-5.1); SODIUM LEVEL 141 MEQ/L (136-145); TOTAL PROTEIN 6.6 GM/DL (6.4-8.2)
--- NOTE | 2019-07-17 08:56 | ECHO ---
DATE OF PROCEDURE: 07/16/2019 REFERRING PHYSICIAN: Dr. Little HEIGHT: 165 cm WEIGHT: 145 kg DIMENSIONS: Aorta: 3.1 LA: 4.4 RV: 4.6 LV: 4.6 IVC: 2.5 Mitral E wave velocity: 69 A wave: 89 E prime septal: 8.6 E prime lateral: 5.2 FINDINGS: The study is of fair technical quality corresponding to patient's body habitus. The patient is in sinus rhythm. Left ventricle is normal size and overall normal contractility. I estimate left ventricular ejection fraction (LVEF) approximately 70%. The right ventricle is severely dilated, but appears to have at least mostly preserved contractility. The left atrium is moderately enlarged. The right atrium was poorly visualized. The aortic valve is tricuspid. It is mildly sclerotic, but mobility is preserved. There are degenerative abnormalities of the mitral valve with thickening of mitral leaflets and some mitral annular calcifications, but mobility of leaflets is preserved. The tricuspid valve appears normal. The pulmonic valve also appears normal. No pericardial effusion is noted. The inferior vena cava is dilated and there is no appreciable collapse with inspiration, indicative of very high central venous pressure. The aortic root is normal. Aortic arch and abdominal aorta were poorly visualized. Doppler interrogation reveals competent aortic valve. There is also no significant mitral stenosis or insufficiency. At least moderate or moderately severe tricuspid insufficiency is seen. Calculated pulmonary artery pressure exceeds 100 mmHg. The pulmonic valve is functionally competent. Mitral inflow pattern and tissue Doppler imaging of mitral annulus reveals grade 1 diastolic dysfunction. CONCLUSIONS: 1. Study is of fair technical quality, she is in sinus rhythm. 2. Normal LV size with preserved LV systolic function and grade 1 diastolic dysfunction. 3. Severely dilated right ventricle. 4. Very high central venous pressure. 5. Severe pulmonary hypertension, pulmonary artery pressure exceeds 100 mmHg. Based on some TR velocity measurements, it may exceed 110 mmHg. COMMENT: The study is consistent with severe pulmonary hypertension.
[2019-07-17] MEDS: ASPIRIN 81 MG ENTERIC TAB PO SCH (09:41)
[2019-07-17] MEDS: TORSEMIDE (DEMADEX) 50 MG PER 1/2 TAB PO SCH (09:41)
[2019-07-17] MEDS: DOCUSATE SODIUM 100 MG CAP PO SCH ×2 (09:42→20:44)
[2019-07-17] MEDS: METOPROLOL TART 12.5 MG PER 1/2 TAB PO SCH ×2 (09:42→20:44)
[2019-07-17] MEDS: ROSUVASTATIN 10 MG TAB (CRESTOR) PO SCH (09:42)
[2019-07-17] MEDS: SPIRONOLACTONE 25 MG TAB PO SCH (10:15)
--- NOTE | 2019-07-17 12:28 | IPN ---
DATE OF SERVICE: 07/17/2019 Ms. Eid was seen and examined sitting up at the bedside this morning. She looks to have improved. She states that she feels better and that she is no longer having shortness of breath. She also reports that she is having difficulty using her CPAP since she has been here because she cannot get a good seal every time that she moves around in the bed so she has not been using it since she has been here. Otherwise, the plan for her today was discussed with her in regards to her transfer down to [place] for a right heart catheterization. Dr. Sanchez spoke with Dr. Cartagena this morning and the plan is for her to go to [place] either this afternoon of on Saturday. The patient is in agreement with this plan. She gets somewhat tearful when I discussed it with her, asking if I can explain it to her significant other whom I will call this afternoon. Otherwise, she denies any palpitations. She does report that she thinks her gout is acting up because her left great toe is in pain, but she thinks that the swelling in her lower extremities has improved. OBJECTIVE: Her vital signs at this time are temperature 96.7, pulse 80 and irregular, respiratory rate 18, blood pressure 142/87, pulse oximetry 92% on 8 liters nasal cannula. Telemetry was reviewed and the patient would seem to be bradycardic overnight while she was asleep in the 50s to 60s and this morning did go up to 110, now is around 90. She does have sudden bursts of irregular beats, possibly PVCs versus paroxysmal atrial fibrillation. Ins and Outs: She voided almost 5500 mL yesterday and now weighs 141.5 kg, down from 148.6 kg when she was admitted. PHYSICAL EXAMINATION: She is morbidly obese, sitting up at the bedside, calm, cooperative, very pleasant. HEENT: Her mucous membranes are moist. Her pupils are equally round and reactive to light. There is possibly some dysconjugate gaze recognized. Extraocular movements are intact. She has no scleral icterus. NECK: Supple. No thyromegaly. No lymphadenopathy. She still has elevated jugular venous distention (JVD) estimated at 8-9 cm above the sternal angle. RESPIRATORY: She has some faint crackles at the bases bilaterally. Otherwise, no adventitious breath sounds are appreciated. HEART: She has a very prominent S2 louder than S1. Irregularly irregular heart rate. No other murmurs, rubs, or gallops are appreciated. ABDOMEN: Soft, obese, nontender to palpation. Positive bowel sounds. No masses. No organomegaly. LOWER EXTREMITIES: She has trace pitting edema in her lower extremities bilaterally. Her left great toe is somewhat swollen, painful to touch. SKIN: She has some redness or chronic venous stasis in her legs bilaterally, but no evidence of infection. LYMPHATICS: She has no enlarged lymph nodes in the groin or the neck. NEUROLOGIC: She has strength 5/5 in both upper and lower extremities. No loss of sensation. Cranial nerves II-XII are intact with no obvious focal deficits. PSYCHIATRIC: Normal mood and normal affect. LABORATORY DATA: Today's labs demonstrate a white blood cell count of 8.1, hemoglobin 11.9, hematocrit 39.3 and a platelet count of 175. Chemistries show a sodium 141, potassium 3.6, chloride 1012, BUN 21, and her creatinine 0.82. Liver enzymes are normal. Her troponin recheck that was done yesterday did come down to 1.76 from 2.47. She had an EKG done yesterday morning with the demonstrated sinus rhythm with frequent PVCs at a rate of 63. Otherwise no interval changes and no other abnormalities. Echocardiogram was done yesterday and read by Dr. Sanchez with the findings of sinus rhythm, normal LV size with preserved LV systolic function, grade 1 diastolic dysfunction, severely dilated right ventricle, very high central venous pressure, and severe pulmonary hypertension. Pulmonary artery pressure exceeding 100 mmHg. Based on some TR velocity measurements, it may exceed 110 mmHg. ASSESSMENT: This is a 64-year-old female with morbid obesity and severe pulmonary hypertension who presented with shortness of breath and palpitations, found to be tachycardic and in atrial fibrillation. Her rate is somewhat controlled this morning. PLAN: At this time, we will wait for Dr. Cartagena in [place] to give us the word about accepting her as a patient there for her right heart catheterization. She is aware of this plan. There is a possibility she will go this afternoon or Saturday morning. For the time being, her rate has been controlled. No need for medication changes at this time. We would like to continue with aggressive diuresis as well. In addition, she needs to be encouraged to wear her CPAP while she is here overnight. She is aware of that. Otherwise, oxygen can be titrated for a range of 88-92%. Given that she is well above her normal baseline, she still has a ways to go with her diuresis. We will continue to follow along with this patient. Feel free to call us with any questions.
--- NOTE | 2019-07-17 14:04 | IPNPDOC ---
Text Note Date of Service The patient was seen on 07/17/19. NOTE Subjective: Patient seen and examined at bedside. States she is feeling somewhat better. Denies chest pain, abdominal pain, N/V/D, headaches, changes in vision. Objective: General: NAD, lying comfortably in bed HEENT: NC/AT, EOMI Lungs: diminished breath sound b/l Heart: +S1S2, RRR Abd; soft, NT, +BS, morbidly obese Ext: trace edema, difficult to assess A/P: 64 yo female presents for palpitations and shortness of breath that occurred while showering. On presentation to ED found to be in SVT/MFAT, converted NSR, complicated with acute/chronic hypoxic respiratory failure. #tachyarrhythmia - resolved - now in NSR - responded well to medications - now in normal sinus rhythm - follow as per cardiology - assistance appreciated #acute/chronic hypoxic respiratory failure - multi factorial - secondary to COPD, TERRY, OHS, pulmonary hypertension and fluid overload - baseline chronic hypoxic respiratory requiring 2-3 L supplemental oxygen - CTA negative for PE - supplemental oxygen as needed, incentive spirometry, respiratory treatments, steroid therapy - diurese - demadex, aldactone - pulmonology consultation appreciated, echo pending #troponinemia - likely demand ischemia - trending down #hypothyroidism - continue synthroid #gouty attack - steroid therapy #morbid obesity - dietary consultation pending - complicates medical care #hypothyroidism - continue synthroid #DLP - continue statin therapy #HTN - torsemide, lopressor #DVT prophylaxis - heparin SC Dispo: possible transfer to [facility] for cardiac cath on Saturday; discussed at length with her significant other - Lonnie Horace - [phone] VS,Darlenee, I+O VS, Fishbone, I+O Laboratory Tests 07/17/19 07:20 Vital Signs Date Time Temp Pulse Resp B/P (MAP) Pulse Ox O2 Delivery O2 Flow Rate FiO2 07/17/19 12:00 96.4 87 16 122/72 (89) 93 High Flow Cannula 8.0 I&O- Last 24 Hours up to 6 AM 07/17/19 05:59 Intake Total 2305 ml Output Total 5750 ml Balance -3445 ml MEHDI RECINOS MD Jul 17, 2019 14:04
[2019-07-17] MEDS: traMADol 50 MG TAB PO PRN (16:38)
[2019-07-17] MEDS ORDERED: predniSONE 20 MG TAB PO ONE (18:45)
[2019-07-18] VITALS (16 sets, daily range): BP systolic 121–144; BP diastolic 59–91; O2SAT 89–96
[2019-07-18] MEDS: LEVOTHYROXINE 25MCG TABLET (0.025MG) PO SCH (04:54)
[2019-07-18] MEDS: LEVOTHYROXINE 150MCG TABLET (0.15MG) PO SCH (04:54)
[2019-07-18 05:25] LABS: HEMATOCRIT 40.5 % (36.0-47.0); HEMOGLOBIN 12.6 g/dl (12.0-15.5); MEAN CORPUSCULAR HEMOGLOBIN 30.6 pg (27.0-33.0); MEAN CORPUSCULAR HGB CONC 31.1 g/dl (32.0-36.5); MEAN CORPUSCULAR VOLUME 98.3 fl (80.0-96.0); PLATELET COUNT, AUTOMATED 198 10^3/uL (150-450); RED BLOOD COUNT 4.12 10^6/uL (4.00-5.40); WHITE BLOOD COUNT 10.8 10^3/uL (4.0-10.0)
[2019-07-18 05:48] LABS: BLOOD UREA NITROGEN 22 MG/DL (7-18); CALCIUM LEVEL 8.8 MG/DL (8.8-10.2); CARBON DIOXIDE LEVEL 35 MEQ/L (21-32); CHLORIDE LEVEL 101 MEQ/L (98-107); CREATININE FOR GFR 0.79 MG/DL (0.55-1.30); GLOMERULAR FILTRATION RATE > 60.0 (>45); GLUCOSE, FASTING 112 MG/DL (70-100); SODIUM LEVEL 143 MEQ/L (136-145)
--- NOTE | 2019-07-18 07:21 | IPNPDOC ---
Text Note Date of Service The patient was seen on 07/18/19. NOTE TIME OF SERVICE: 805AM Subjective: The patient denies having any dyspnea. Her left toe pain has improved, but she also developed right toe pain. Objective: GEN: NAD INTEGUMENT: dorsal surface of right foot red and warm CVS: RRR/NMRG LUNGS: CTAB PSYCH: A&O x3 NEURO: speech not dysarthric Vitals and labs: see below Assessment: is a 64 yr old F w a PMH of CVA w residual LUE weakness, COPD, Pulm HTN, Hypothyroidism, Gout, obesity, HTN, Dyslipidemia who was initially admitted for management of atypical flutter. Plan: 1. Atypical Flutter. Resolved. - management per Dr. Roque 2. Acute on Chronic Hypoxic Respiratory Failure. Dyspnea is likely 2/2 fluid overload from Pulm HTN, TERRY/OHS. At her baseline she uses 3L of O2 at home but is now using 8 L. CTA was neg for PE - c/w O2 via HFNC during the day and own CPAP at night/ diuresis with torsemide & aldactone / she will be transferred to [facility] on Saturday for right heart cath to determine the cause of the Pulm HTN on Saturday 3. COPD - Spiriva & supplemental O2 4. Type 2 NSTEMI/Demand ischemia 5. Hypothyrodism - levothyroxine 6. Acute Gout affecting the toes. This didnt improve with prednisone. - since her renal function is intact will switch to Colchicine & c/w Ultram 7. Chronic HTN - torsemide, and metoprolol 8. Dyslipidemia- rosuvastatin 9. Morbid Obesity with BMI of 52.9. Complicates care DVT Px with Heparin VS,Fishbone, I+O VS, Fishbone, I+O Laboratory Tests 07/18/19 04:17 Vital Signs Date Time Temp Pulse Resp B/P (MAP) Pulse Ox O2 Delivery O2 Flow Rate FiO2 07/18/19 04:00 8.0 07/18/19 04:00 96.0 93 20 138/91 (107) 92 High Flow Cannula I&O- Last 24 Hours up to 6 AM 07/18/19 06:00 Intake Total 1220 ml Output Total 3200 ml Balance -1980 ml DORIAN YOO MD Jul 18, 2019 07:21
[2019-07-18] MEDS: TIOTROPIUM INHALER/CAPSULE (SPIRIVA) INH SCH (07:54)
[2019-07-18] MEDS: traMADol 50 MG TAB PO PRN (08:44)
[2019-07-18] MEDS: DOCUSATE SODIUM 100 MG CAP PO SCH ×2 (08:45→21:10)
[2019-07-18] MEDS: SPIRONOLACTONE 25 MG TAB PO SCH (08:45)
[2019-07-18] MEDS: METOPROLOL TART 12.5 MG PER 1/2 TAB PO SCH ×2 (08:45→21:10)
[2019-07-18] MEDS: ROSUVASTATIN 10 MG TAB (CRESTOR) PO SCH (08:45)
[2019-07-18] MEDS: TORSEMIDE (DEMADEX) 50 MG PER 1/2 TAB PO SCH (08:46)
[2019-07-18] MEDS: ASPIRIN 81 MG ENTERIC TAB PO SCH (08:46)
[2019-07-18] MEDS: predniSONE 20 MG TAB PO SCH (12:18)
[2019-07-18] MEDS ORDERED: COLCHICINE 0.6 MG TAB PO ONE (15:00)
[2019-07-18] MEDS: HEPARIN SOD (PORCINE) 5000UNITS/ML VIAL (J1644 PER 1000UNITS) SQ SCH (21:10)
[2019-07-18] MEDS: RAMELTEON 8 MG TAB (ROZEREM) PO PRN (23:32)
[2019-07-19] VITALS (15 sets, daily range): BP systolic 110–147; BP diastolic 57–90; O2SAT 88–93
[2019-07-19 04:50] LABS: BASO % 0.3 % (0.0-1.0); EOS % 0.3 % (0.0-3.0); HEMATOCRIT 39.4 % (36.0-47.0); HEMOGLOBIN 12.1 g/dl (12.0-15.5); LYMPH # 1.6 10^3/uL (1.5-5.0); LYMPH % 14.1 % (24.0-44.0); MEAN CORPUSCULAR HEMOGLOBIN 30.7 pg (27.0-33.0); MEAN CORPUSCULAR HGB CONC 30.7 g/dl (32.0-36.5); MONO # 0.6 10^3/uL (0.0-0.8); MONO % 5.3 % (0.0-5.0); NEUTROPHILS # 8.8 10^3/uL (1.5-8.5); NEUTROPHILS % 79.7 % (36.0-66.0); PLATELET COUNT, AUTOMATED 200 10^3/uL (150-450); RED BLOOD COUNT 3.94 10^6/uL (4.00-5.40)
[2019-07-19 05:04] LABS: BLOOD UREA NITROGEN 22 MG/DL (7-18); CALCIUM LEVEL 8.4 MG/DL (8.8-10.2); CARBON DIOXIDE LEVEL 38 MEQ/L (21-32); CHLORIDE LEVEL 102 MEQ/L (98-107); CREATININE FOR GFR 0.77 MG/DL (0.55-1.30); GLOMERULAR FILTRATION RATE > 60.0 (>45); GLUCOSE, FASTING 102 MG/DL (70-100); POTASSIUM SERUM 3.7 MEQ/L (3.5-5.1); SODIUM LEVEL 143 MEQ/L (136-145)
[2019-07-19] MEDS: LEVOTHYROXINE 25MCG TABLET (0.025MG) PO SCH (06:04)
[2019-07-19] MEDS: HEPARIN SOD (PORCINE) 5000UNITS/ML VIAL (J1644 PER 1000UNITS) SQ SCH ×3 (06:04→21:15)
[2019-07-19] MEDS: LEVOTHYROXINE 150MCG TABLET (0.15MG) PO SCH (06:04)
[2019-07-19] MEDS: TIOTROPIUM INHALER/CAPSULE (SPIRIVA) INH SCH (07:50)
[2019-07-19] MEDS: ASPIRIN 81 MG ENTERIC TAB PO SCH (08:51)
[2019-07-19] MEDS: METOPROLOL TART 12.5 MG PER 1/2 TAB PO SCH ×2 (08:51→21:15)
[2019-07-19] MEDS: SPIRONOLACTONE 25 MG TAB PO SCH (08:51)
[2019-07-19] MEDS: ROSUVASTATIN 10 MG TAB (CRESTOR) PO SCH (08:51)
[2019-07-19] MEDS: traMADol 50 MG TAB PO PRN (08:52)
[2019-07-19] MEDS: DOCUSATE SODIUM 100 MG CAP PO SCH ×2 (08:52→21:15)
[2019-07-19] MEDS: TORSEMIDE (DEMADEX) 50 MG PER 1/2 TAB PO SCH (08:52)
[2019-07-19] MEDS: predniSONE 20 MG TAB PO SCH (08:52)
[2019-07-19] MEDS ORDERED: COLCHICINE 0.6 MG TAB PO SCH (09:00)
--- NOTE | 2019-07-19 11:57 | IPNPDOC ---
Text Note Date of Service The patient was seen on 07/19/19. NOTE TIME OF SERVICE: 812AM Subjective: The patient reports that the pain in her toes improved after starting colchicine. She has no other acute complaints this morning. Per discuss ion with her RN, the patient's O2 has been weaned down from 8 L to 5 L. Objective: GEN: NAD CVS: RRR/NMRG LUNGS: CTAB PSYCH: A&O x3 NEURO: CN II to 12 grossly intact / speech not dysarthric Vitals and labs: see below Assessment: is a 64 yr old F w a PMH of CVA w residual LUE weakness, COPD, Pulm HTN, Hypothyroidism, Gout, obesity, HTN, Dyslipidemia who was initially admitted for management of atypical flutter; her course has been complicated by acute on chronic hypoxemic respiratory failure likely due to pulmonary hypertension and acute gout. Plan: 1. Atypical Flutter. Resolved. - management per Dr. Roque 2. Acute on Chronic Hypoxic Respiratory Failure. Dyspnea is likely due to combination of 2/2 fluid overload from Pulm HTN, TERRY/OHS. At her baseline she uses 3L of O2 at home but is now using 5 L. CTA was neg for PE - c/w O2 during the day and own CPAP at night/ continue diuresis with torsemide & spironolactone 3. COPD - Spiriva & supplemental O2 4. Acute Gout affecting the toes. - c/w colchicine 0.6mg daily & decrease tramadol from 50mg QID PRN to 25mg QID PRN 5. Hypothyroidism - levothyroxine 6. Type 2 NSTEMI/Demand ischemia 7. Chronic HTN - torsemide, and metoprolol 8. Dyslipidemia- rosuvastatin 9. Morbid Obesity with BMI of 52.9. Complicates care DVT Px with Heparin Disposition: she will be transferred to [facility] on Saturday for right heart cath to determine the cause of the Pulm HTN on Saturday Jeronimo PENALOZA, I+O VSJeronimo, I+O Laboratory Tests 07/19/19 04:27 Vital Signs Date Time Temp Pulse Resp B/P (MAP) Pulse Ox O2 Delivery O2 Flow Rate FiO2 07/19/19 11:54 5.0 07/19/19 09:22 18 07/19/19 08:51 58 136/62 07/19/19 08:00 97.0 90 High Flow Cannula I&O- Last 24 Hours up to 6 AM 07/19/19 06:00 Intake Total 600 ml Output Total 1800 ml Balance -1200 ml DORIAN YOO MD Jul 19, 2019 11:57
[2019-07-19] MEDS ORDERED: traMADol 50 MG TAB PO PRN (12:15)
[2019-07-19] MEDS ORDERED: SLF 3 ML SYR IV PRN (16:00)
[2019-07-19] MEDS: SLF 3 ML SYR IV SCH (21:15)
[2019-07-19] MEDS: RAMELTEON 8 MG TAB (ROZEREM) PO PRN (22:27)
[2019-07-20] VITALS (10 sets, daily range): BP systolic 115–128; BP diastolic 56–62; O2SAT 91–96
[2019-07-20] MEDS: LEVOTHYROXINE 25MCG TABLET (0.025MG) PO SCH (05:12)
[2019-07-20] MEDS: HEPARIN SOD (PORCINE) 5000UNITS/ML VIAL (J1644 PER 1000UNITS) SQ SCH ×2 (05:12→13:58)
[2019-07-20] MEDS: LEVOTHYROXINE 150MCG TABLET (0.15MG) PO SCH (05:12)
[2019-07-20] MEDS: SLF 3 ML SYR IV SCH ×2 (05:13→13:59)
[2019-07-20 05:24] LABS: BASO % 0.4 % (0.0-1.0); EOS % 0.3 % (0.0-3.0); HEMATOCRIT 39.1 % (36.0-47.0); LYMPH # 2.2 10^3/uL (1.5-5.0); LYMPH % 24.6 % (24.0-44.0); MEAN CORPUSCULAR HEMOGLOBIN 30.8 pg (27.0-33.0); MEAN CORPUSCULAR HGB CONC 30.7 g/dl (32.0-36.5); MEAN CORPUSCULAR VOLUME 100.3 fl (80.0-96.0); MONO # 0.5 10^3/uL (0.0-0.8); MONO % 5.6 % (0.0-5.0); NEUTROPHILS # 6.2 10^3/uL (1.5-8.5); NEUTROPHILS % 68.9 % (36.0-66.0); PLATELET COUNT, AUTOMATED 196 10^3/uL (150-450); WHITE BLOOD COUNT 9.1 10^3/uL (4.0-10.0)
[2019-07-20 05:46] LABS: BLOOD UREA NITROGEN 26 MG/DL (7-18); CALCIUM LEVEL 8.7 MG/DL (8.8-10.2); CARBON DIOXIDE LEVEL 37 MEQ/L (21-32); CHLORIDE LEVEL 101 MEQ/L (98-107); GLOMERULAR FILTRATION RATE > 60.0 (>45); GLUCOSE, FASTING 98 MG/DL (70-100); POTASSIUM SERUM 3.8 MEQ/L (3.5-5.1); SODIUM LEVEL 143 MEQ/L (136-145)
[2019-07-20] MEDS ORDERED: COLC1TAB13 PO (07:24)
--- NOTE | 2019-07-20 07:26 | DS.PDOC ---
Discharge Summary General Date of Admission Jul 15, 2019 at 00:12 Date of Discharge 07/20/2019 Time of service 6:40 AM Primary Care Physician: Jr Anna Collins Attending Physician: DORIAN YOO MD Specialist/Consultants Involve: Clay Sanchez MD Specialist/Consultants Involve Dr. Sung Discharge Summary PROCEDURES PERFORMED DURING STAY: [None]. ADMITTING DIAGNOSES: 1. Atrial flutter with rapid ventricular response 2. COPD (chronic obstructive pulmonary disease) 3. Hypothyroidism 4. Morbid obesity DISCHARGE DIAGNOSES: 1. Atypical Flutter 2. Acute on Chronic Hypoxic Respiratory Failure 2/2 fluid overload from Pulm HTN, TERRY/OHS 3. COPD due to tobacco abuse 4. Acute Gout 5. Hypothyroidism 6. Type 2 NSTEMI/Demand ischemia 7. Chronic HTN 8. Dyslipidemia 9. Morbid Obesity COMPLICATIONS/CHIEF COMPLAINT: Atrial Flutter With Rvr. HISTORY OF PRESENT ILLNESS: Per HPI Mrs. Eid is "...a 64 years old white female with past medical history of CVA with the rest her left upper and lower extremity weakness developed increased heart rate, palpitation and shortness of breath about 11:30 after she got out of the shower. Patient denies chest pain, nausea, vomiting, abdominal pain or diarrhea. In ED, patient was found to have various rhythms from SVT to a flutter and she received multiple medications to control her went red. Right now she is in normal sinus rhythm and offers no new complaints at the present time. Dr. Sanchez was called from ED and he will see the patient in a.m." HOSPITAL COURSE: She was initially admitted for management of atypical flutter; she was evaluated by Dr. Sanchez who noted that her PSAP was extremely elevated recommended transfer to [place]'s right heart cath to help determine the cause. It was noted that her troponin was elevated but this was thought to be likely secondary to tachycardia. Because of the hypoxemia and acute on chronic pulmonary edema she was evaluated by who agreed with diuresis and CPAP. During her stay, she developed gout which proved his colchicine. On the morning of July 19 she denied having any acute complaints and anticipated transfer to [place]. her course has been complicated by acute on chronic hypoxemic respiratory failure likely due to pulmonary hypertension and acute gout DISCHARGE MEDICATIONS: Please see below. ALLERGIES: Please see below. PHYSICAL EXAMINATION ON DISCHARGE: VITAL SIGNS: Please see below. GENERAL: NAD HEENT: NCAT/NC in place CARDIOVASCULAR EXAMINATION: RRR/NRMG RESPIRATORY EXAMINATION: CTAB NEUROLOGICAL EXAMINATION: CN II to 12 grossly intact. Speech not dysarthric PSYCHIATRIC EXAMINATION: A and O 3, able to understand and follow commands LABORATORY DATA: Please see below. IMAGING: CT chest "IMPRESSION: 1. Motion limited exam. No central pulmonary embolism is seen. Evaluation of peripheral pulmonary arteries is very limited secondary to excessive motion. 2. Pulmonary artery enlargement suggesting pulmonary hypertension. " Echo "CONCLUSIONS: 1. Study is of fair technical quality, she is in sinus rhythm. 2. Normal LV size with preserved LV systolic function and grade 1 diastolic dysfunction. 3. Severely dilated right ventricle. 4. Very high central venous pressure. 5. Severe pulmonary hypertension, pulmonary artery pressure exceeds 100 mmHg. Based on some TR velocity measurements, it may exceed 110 mmHg." PROGNOSIS: Fair ACTIVITY: [As tolerated]. DIET: Low-salt DISCHARGE PLAN: Transfer to [facility] DISPOSITION: . DISCHARGE INSTRUCTIONS: 1. See below ITEMS TO FOLLOWUP ON ON OUTPATIENT: 1. Follow-up with PCP and Dr. Sanchez on results of right heart cath. 2. 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 Resolution of gout DISCHARGE CONDITION: [Stable]. TIME SPENT ON DISCHARGE: 25 minutes. Vital Signs/I&Os Vital Signs Date Time Temp Pulse Resp B/P (MAP) Pulse Ox O2 Delivery O2 Flow Rate FiO2 07/20/19 04:00 5.0 07/20/19 04:00 98.4 81 18 116/56 (76) 92 High Flow Cannula I&O- Last 24 Hours up to 6 AM 07/20/19 06:00 Intake Total 600 ml Output Total 2350 ml Balance -1750 ml Laboratory Data Labs 24H Laboratory Tests 2 07/20/19 05:08: Immature Granulocyte % (Auto) 0.2, Neutrophils (%) (Auto) 68.9H, Lymphocytes (%) (Auto) 24.6, Monocytes (%) (Auto) 5.6H, Eosinophils (%) (Auto) 0.3, Basophils (%) (Auto) 0.4, Neutrophils # (Auto) 6.2, Lymphocytes # (Auto) 2.2, Monocytes # (Auto) 0.5, Eosinophils # (Auto) 0.0, Basophils # (Auto) 0.0, Nucleated Red Blood Cells % (auto) 0.0, Anion Gap 5L, Glomerular Filtration Rate > 60.0, Calcium Level 8.7L CBC/BMP Laboratory Tests 07/20/19 05:08 Microbiology Microbiology 07/16/19 Coronavirus COVID-19 PCR ([facility]AN) - Final, Complete 07/15/19 Stool Occult Blood ([facility]EVAN) - Final, Complete Discharge Medications Scheduled Acetaminophen (Tylenol Extra Strength) 500 Mg Tablet, 1,000 MG PO DAILY, (Reported) Amlodipine Besylate (Amlodipine Besylate) 2.5 Mg Tablet, 2.5 MG PO DAILY, (Reported) Aspirin (Aspirin EC) 81 Mg Tablet.dr, 81 MG PO DAILY, (Reported) Glycopyrrolate/Formoterol Fum (Bevespi Aerosphere Inhaler) 10.7 Gm Hfa.aer.ad, 2 PUFFS INH BID, (Reported) Levothyroxine Sodium (Synthroid) 175 Mcg Tablet, 175 MCG PO DAILY, (Reported) Multivitamin (Multivitamins) 1 Each Capsule, 1 CAP PO DAILY, (Reported) Rosuvastatin Calcium (Rosuvastatin Calcium) 5 Mg Tablet, 5 MG PO DAILY, (Reported) Torsemide (Torsemide) 20 Mg Tab, 30 MG PO DAILY, (Reported) Scheduled PRN Nitroglycerin (Nitroglycerin) 0.4 Mg Tab.subl, 0.4 MG SL NITRO PRN for CHEST PAIN, (Reported) Tramadol HCl (Tramadol HCl) 50 Mg Tablet, 50 MG PO QID PRN for PAIN, (Reported) Allergies Coded Allergies: codeine (Verified Adverse Reaction, Mild, n/v, 12/25/18) DORIAN YOO MD Jul 20, 2019 07:26
[2019-07-20] MEDS: TIOTROPIUM INHALER/CAPSULE (SPIRIVA) INH SCH (07:58)
[2019-07-20] MEDS: ASPIRIN 81 MG ENTERIC TAB PO SCH (08:33)
[2019-07-20] MEDS: METOPROLOL TART 12.5 MG PER 1/2 TAB PO SCH (08:33)
[2019-07-20] MEDS: DOCUSATE SODIUM 100 MG CAP PO SCH (08:33)
[2019-07-20] MEDS: SPIRONOLACTONE 25 MG TAB PO SCH (08:33)
[2019-07-20] MEDS: ROSUVASTATIN 10 MG TAB (CRESTOR) PO SCH (08:34)
[2019-07-20] MEDS: TORSEMIDE (DEMADEX) 50 MG PER 1/2 TAB PO SCH (08:34)
[2019-07-20] MEDS ORDERED: COLCHICINE 0.6 MG TAB PO SCH (09:00)
--- NOTE | 2019-07-20 17:49 | IPN ---
DATE: 07/20/2019 SUBJECTIVE: The patient was seen and examined at the bedside this morning. She reports that she is feeling well. She will be going to [facility] today for a right heart catheterization, transferred later this morning. She is quite apprehensive not knowing what might happen and how long she will be staying in [place]. I have advised her that this procedure is quite necessary and that she will need to follow closely, most likely with a pulmonary hypertension center, given the results. I spoke with her boyfriend on Saturday and explained the entire diagnosis and plan for her as well. This morning, she reports that she is able to breathe very well, her gout is better managed, and she had no issues overnight. OBJECTIVE: VITAL SIGNS: Temperature 97.0, pulse 86, respiratory rate 20, blood pressure 127/60, pulse oximetry 95% on 5 liters nasal cannula. GENERAL: She is sitting up at the bedside. She is calm, cooperative. No acute distress. Very pleasant. HEENT: Mucous membranes are moist. Her pupils are equally round and reactive to light. There is possibly some dysconjugate gaze recolonized. Extraocular movements are intact, and she has no scleral icterus. NECK: Supple. No thyromegaly. No lymphadenopathy. She has elevated jugular venous distention (JVD) estimated at 7-8 cm above the sternal angle. RESPIRATORY: Clear to auscultation bilaterally. No adventitious breath sounds are appreciated. HEART: She has very prominent S2, louder than S1. Irregularly irregular heart rate with no other murmurs, rubs, or gallops appreciated. ABDOMEN: Soft, obese, nontender to palpation. Positive bowel sounds. No masses. No organomegaly. LOWER EXTREMITIES: Has trace pitting edema bilaterally in her lower extremities. SKIN: She has some redness and chronic venous stasis in her legs bilaterally but no evidence of infection. LYMPHATICS: She has no enlarged lymph node in her groin or her neck. NEUROLOGIC: She has strength 5/5 in both upper and lower extremities. No loss of sensation. Cranial nerves II-XII are intact without any obvious focal deficits. PSYCHIATRIC: She has normal mood and normal affect. LABORATORY DATA: Today her white blood cell count is 9.1, her hemoglobin is 12.0, hematocrit 39.1, and platelet count is 196. Chemistries: She has a sodium of 143, potassium 3.8, chloride 101, BUN 26, and creatinine 0.8 with a calcium of 8.7. ASSESSMENT: This is a 64-year-old female with morbid obesity and severe pulmonary hypertension, who presented with shortness of breath and palpitations, found to be tachycardic in atrial fibrillation. Her rate is somewhat more controlled this morning, although still irregular. PLAN: At this time she will be transferred to [facility] for a right heart catheterization. Dr. Sanchez will followup with her in the office in the outpatient setting, depending on the results of this right heart catheterization. Thank you for this consult, and we will look forward to seeing this patient in the outpatient setting.
== END 2019-07-20 14:40 | disposition short-term general hospital (02) | DRG 201 ==
LOC: M ED 18:16 → EDBD 18:16 → M ED INP 07-15 00:12 → ENRESERV 07-15 00:59 → M PCU 07-15 01:24
PROVIDERS: ADMIT Internal Medicine; ATTEND Internal Medicine
DX: I48.92 Unspecified atrial flutter (principal); J96.21 Acute and chronic respiratory failure with hypoxia; I27.20 Pulmonary hypertension, unspecified; E66.2 Morbid (severe) obesity with alveolar hypoventilation; I69.354 Hemiplegia and hemiparesis following cerebral infarction affecting left non-dominant side; Z68.43 Body mass index [BMI] 50.0-59.9, adult; E66.01 Morbid (severe) obesity due to excess calories; M10.9 Gout, unspecified; E78.5 Hyperlipidemia, unspecified; I10 Essential (primary) hypertension; E03.9 Hypothyroidism, unspecified; J44.9 Chronic obstructive pulmonary disease, unspecified; Z79.82 Long term (current) use of aspirin; Z79.899 Other long term (current) drug therapy; Z88.5 Allergy status to narcotic agent; Z87.891 Personal history of nicotine dependence; E11.9 Type 2 diabetes mellitus without complications; E87.6 Hypokalemia; I48.91 Unspecified atrial fibrillation

== ENCOUNTER → 2019-08-16 | Outpatient (CLI) | payer BC ==
[~2019-08-16] MED LIST changes: +AMLO2.5T3 PO; +COLC1TAB13 PO; +MULTCAP PO; +NITR0.4S14 SL; +ROSU5TAB5 PO
--- NOTE | 2019-08-27 16:51 | SLEEPCENT ---
DATE OF PROCEDURE: 08/16/2019 ORDERED BY: Dr. Smart Nocturnal polysomnography was performed for the re-titration of pressure therapy in this patient with known obstructive sleep apnea syndrome. For testing a ResMed AirFit F20 full-face mask of large size was used and initial pressure of 12 cm of water pressure was applied to the circuit with 3 liters of oxygen bled through the system. The lights were then extinguished. 7 hours and 9 minutes of data were reviewed. There were 401.5 minutes of sleep identified. Sleep latency was short at 5.5 minutes. Rapid eye movement (REM) latency was short at 54 minutes. Sleep architecture was fairly good. There were 4 REM cycles noted. Overall sleep efficiency 94.8%. The patient's electrocardiogram showed a sinus rhythm with an average heart rate of 55 beats per minute. Electroencephalogram (EEG) showed coarsening in background throughout. No focal events were identified. Persistence of respiratory events prompted an increase in CPAP pressure and increase in oxygen delivery. Despite optimal mask fit and minimal air leak late in the study the patient required changed to a bilevel device. Best sleep was seen on a bilevel device inspiratory 21 over expiratory of 17. 5 liters of oxygen was necessary to bleed into the system to maintain adequate saturations. There was also some limb activity noted. Limb movement arousal index 5.1. IMPRESSION: Obstructive sleep apnea syndrome (G47.33). RECOMMENDATIONS: Nightly use of bilevel pressure therapy inspiratory 21 over expiratory 17 with 5 liters of oxygen bled through the system.
== END ==
LOC: M SLEEP 20:00
PROVIDERS: ATTEND Internal Medicine Pulmonary Disease
DX: G47.33 Obstructive sleep apnea (adult) (pediatric) (principal)

== ENCOUNTER 2019-10-09 09:30 | Emergency (ER) | payer BC ==
[~2019-10-09] VITALS: Ht 165.1 cm; Wt 136.7 kg
[2019-10-09 09:30] VITALS: BP 133/81
[2019-10-09] MEDS ORDERED: ONDANSETRON 4MG/2ML VIAL IV ONE (10:00)
[2019-10-09] MEDS ORDERED: MORPHINE 4 MG/ML 1ML VIAL/SYRINGE (J2270) IV PRN (10:00)
[2019-10-09] MEDS ORDERED: METO1TAB87 (10:18)
[2019-10-09] MEDS ORDERED: ELIQ5TAB (10:18)
[2019-10-09 10:41] LABS: BASO % 0.2 % (0.0-1.0); EOS # 0.4 10^3/uL (0.0-0.5); EOS % 2.8 % (0.0-3.0); HEMATOCRIT 37.8 % (36.0-47.0); HEMOGLOBIN 11.7 g/dl (12.0-15.5); LYMPH # 1.3 10^3/uL (1.5-5.0); LYMPH % 10.1 % (24.0-44.0); MEAN CORPUSCULAR HEMOGLOBIN 31.4 pg (27.0-33.0); MEAN CORPUSCULAR VOLUME 101.3 fl (80.0-96.0); MONO # 0.8 10^3/uL (0.0-0.8); MONO % 6.3 % (0.0-5.0); NEUTROPHILS # 10.2 10^3/uL (1.5-8.5); NEUTROPHILS % 80.2 % (36.0-66.0); PLATELET COUNT, AUTOMATED 235 10^3/uL (150-450); RED BLOOD COUNT 3.73 10^6/uL (4.00-5.40); WHITE BLOOD COUNT 12.7 10^3/uL (4.0-10.0)
[2019-10-09 10:53] LABS: INR 1.3; PROTHROMBIN TIME 16.5 SECONDS (11.8-14.0)
--- NOTE | 2019-10-09 11:00 | REPVR ---
PROCEDURE INFORMATION: Exam: XR Chest, 1 View Exam date and time: 10/09/19 (10:16am) Age: 64 years old Clinical indication: Chest pain TECHNIQUE: Imaging protocol: Portable CXR Views: 1 view COMPARISON: Portable CXR of 07/15/19 FINDINGS: Comparison is made with a portable CXR done on 07/15/19. Stable cardiomegaly. Mildly prominent interstitial and vascular markings. Prominent right perihilar vascular markings. Enlarged main pulmonary artery segments again seen. No focal infiltrates. No pleural effusions. 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 Probable pulmonary arterial hypertension. Cardiomegaly. Prominent main pulmonary artery segments, and prominent vascular markings. Electronically signed by: Yuliana Browne On 10/09/2019 11:00:17 AM
[2019-10-09 11:12] LABS: ALBUMIN 3.2 GM/DL (3.2-5.2); ALT/SGPT 14 U/L (12-78); BILIRUBIN,DIRECT 0.1 MG/DL (0.0-0.2); BILIRUBIN,TOTAL 0.9 MG/DL (0.2-1.0); BLOOD UREA NITROGEN 23 MG/DL (7-18); CARBON DIOXIDE LEVEL 33 MEQ/L (21-32); CHLORIDE LEVEL 100 MEQ/L (98-107); CK-MB VALUE MASS < 1.0 NG/ML (<3.6); CPK CREATINE PHOSPHOKINASE 95 U/L (26-192); CREATININE FOR GFR 0.96 MG/DL (0.55-1.30); GLOMERULAR FILTRATION RATE > 60.0 (>45); GLUCOSE, FASTING 120 MG/DL (70-100); LIPASE 68 U/L (73-393); MB/CK RELATIVE INDEX 1.05 (< OR =4); NT-PRO BNP 515 PG/ML (<125); POTASSIUM SERUM 4.6 MEQ/L (3.5-5.1); SODIUM LEVEL 139 MEQ/L (136-145); TOTAL PROTEIN 7.5 GM/DL (6.4-8.2); TROPONIN I < 0.02 NG/ML (< 0.10)
--- NOTE | 2019-10-09 11:19 | REPVR ---
PROCEDURE INFORMATION: Exam: US Duplex Lower Extremity Veins, Bilateral Exam date and time: 10/09/2019 11:06 AM Age: 64 years old Clinical indication: Pain; Leg, lower; Bilateral; Additional info: Swelling, pain below knee bilat, chest pain, SOB TECHNIQUE: Imaging protocol: Real-time duplex ultrasound of the extremities with 2-D patel scale, color Doppler flow and spectral waveform analysis with image documentation. Complete exam focused on the bilateral lower extremity veins. COMPARISON: No relevant prior studies available. FINDINGS: Right deep veins: Unremarkable. The common femoral, femoral, proximal profunda femoral and popliteal veins are patent without thrombus. Normal Doppler waveforms. Normal compressibility and/or augmentation response. Right superficial veins: Saphenofemoral junction is patent without thrombus. Left deep veins: Unremarkable. The common femoral, femoral, proximal profunda femoral and popliteal veins are patent without thrombus. Normal Doppler waveforms. Normal compressibility and/or augmentation response. Left superficial veins: Saphenofemoral junction is patent without thrombus. Soft tissues: Complex fluid collection within the right popliteal fossa, extending into the proximal and mid calf. This measures 19.4 x 2.8 x 6.1 cm. No internal vascularity. This has irregular margins. Slightly complex fluid collection in the left popliteal fossa, measuring 5.6 x 1.5 x 2.4 cm. No internal vascularity. IMPRESSION: 1. No evidence of lower extremity DVT. 2. Large right popliteal cyst with suspected cyst rupture. 3. Smaller left popliteal cyst. Electronically signed by: Carolyn Steiner On 10/09/2019 11:18:38 AM
[2019-10-09 11:37] LABS: ERYTHROCYTE SEDIMENTATION RATE 65 mm/hr (0-30)
[2019-10-09] MEDS ORDERED: ISOVUE-370 76% 100ML VIAL As Ordered ONE (12:39)
--- NOTE | 2019-10-09 13:21 | REPVR ---
PROCEDURE INFORMATION: Exam: CT Angiography Chest With Contrast Exam date and time: 10/09/2019 12:32 PM Age: 64 years old Clinical indication: Chest pain; Additional info: Cp r/p pe TECHNIQUE: Imaging protocol: Computed tomographic angiography of the chest with intravenous contrast. 3D rendering (Not supervised by radiologist): MIP and/or 3D reconstructed images were created by the technologist. Radiation optimization: All CT scans at this facility use at least one of these dose optimization techniques: automated exposure control; mA and/or kV adjustment per patient size (includes targeted exams where dose is matched to clinical indication); or iterative reconstruction. Contrast material: ISOVUE 370; Contrast volume: 75 ml; Contrast route: INTRAVENOUS (IV); COMPARISON: CT ANGIO CHEST 07/14/2019 9:26 PM FINDINGS: Pulmonary arteries: Prominence of the main pulmonary arteries, unchanged. This is suggestive of pulmonary hypertension. No evidence of pulmonary embolism. Aorta: Minimal atherosclerotic change of the thoracic aorta. Lungs: New focal right upper lobe consolidation, compatible with pneumonia. Mild atelectasis in the lung bases. New minimal focal subpleural right lower lobe consolidation. This is also likely infectious in nature. Pleural space: Unremarkable. No pneumothorax. No pleural effusion. Heart: Cardiomegaly. Lymph nodes: Apparent mildly prominent mediastinal and right hilar lymph nodes, measuring up to 11 mm in short axis dimension. Diaphragm: Chronic elevation of the right hemidiaphragm. Gallbladder and bile ducts: There has been a cholecystectomy. Adrenals: 16 mm right adrenal benign adenoma. No follow-up imaging is recommended. Kidneys and ureters: Possible left renal calculus, nonobstructing. Bones/joints: Degenerative change of the spine. Soft tissues: Unremarkable. IMPRESSION: 1. No evidence of pulmonary embolism. Prominence of the pulmonary arteries, unchanged, suggestive of pulmonary hypertension. 2. Right-sided pneumonia. 3. Cardiomegaly. 4. Mild mediastinal and right hilar lymphadenopathy. Electronically signed by: Carolyn Steiner On 10/09/2019 13:21:34 PM
[2019-10-09] MEDS ORDERED: DOXY100C37 PO (15:07)
[2019-10-09] MEDS ORDERED: PRED20TA PO (15:07)
[2019-10-09 15:08] LABS: CK-MB VALUE MASS < 1.0 NG/ML (<3.6); CPK CREATINE PHOSPHOKINASE 49 U/L (26-192); MB/CK RELATIVE INDEX 2.04 (< OR =4); TROPONIN I < 0.02 NG/ML (< 0.10)
[2019-10-09] MEDS ORDERED: NORC1TAB7 PO ×2 (15:08→15:13)
--- NOTE | 2019-10-12 15:25 | ED PDOC ---
Post-Departure Follow-Up cta chest faxed to dr alvarez for fu Teresa Harvey MD Oct 12, 2019 15:25
--- NOTE | 2019-10-27 14:50 | ECGEPIP ---
[facility] - ED Test Date: 2019-10-09 Pat Name: SELENA LUCAS Department: Room: - Gender: Female Secy: : 1955 Requested By: Rsoi Perez Order Number: [id number] Reading MD: Rosi Perez Measurements Intervals [place] Rate: 60 P: 62 WI: 156 QRS: -23 QRSD: 124 T: -15 QT: 435 QTc: 437 Interpretive Statements SINUS RHYTHM WITH SINUS ARRHYTHMIA BORDERLINE LEFT AXIS DEVIATION RIGHT BUNDLE BRANCH BLOCK MODERATE T-WAVE ABNORMALITY, CONSIDER INFERIOR ISCHEMIA ABNORMAL ECG SEE SCANNED DOWNTIME REPORT
== END 2019-10-09 15:59 | disposition home or self-care (01) ==
LOC: M ED 09:30
DX: J18.9 Pneumonia, unspecified organism (principal); M71.21 Synovial cyst of popliteal space [Baker], right knee; I48.91 Unspecified atrial fibrillation; I45.19 Other right bundle-branch block; J44.9 Chronic obstructive pulmonary disease, unspecified; G47.33 Obstructive sleep apnea (adult) (pediatric); Z79.01 Long term (current) use of anticoagulants; Z79.82 Long term (current) use of aspirin; Z79.899 Other long term (current) drug therapy; Z88.6 Allergy status to analgesic agent
CPT/HCPCS: 71045; 71275; 80048; 80076; 82550; 82553; 83690; 83880; 84443; 84484; 85025; 85610; 85652; 93005; 93041; 93970; 94760; 96374; 96375; 99284; J2270; J2405; Q9967

== ENCOUNTER → 2020-06-01 | Outpatient (REF) | payer BC ==
[~2020-06-01] MED LIST changes: +ASPI-569 PO; -ASPI81TAEC PO; +COLC0.6T47 PO; -COLC1TAB13 PO; +DOXY100C37 PO; +ELIQ5TAB; +METO1TAB87; +NORC1TAB7 PO; +PRED20TA PO
== END ==
LOC: M LAB REF 16:39
PROVIDERS: ATTEND Nurse Practitioner Adult Health
DX: M10.9 Gout, unspecified (principal)

== ENCOUNTER → 2020-12-23 | Outpatient (CLI) | payer BC ==
[~2020-12-23] MED LIST changes: +DOXY-443 PO; -DOXY100C37 PO
[2020-12-23 20:17] LABS: CREATININE FOR GFR 1.07 MG/DL (0.55-1.30); GLOMERULAR FILTRATION RATE 55.1 (>45); POTASSIUM SERUM 4.2 MEQ/L (3.5-5.1)
== END ==
LOC: M WUC 15:23
PROVIDERS: ATTEND Nurse Practitioner Adult Health
DX: E87.6 Hypokalemia (principal)

== ENCOUNTER → 2021-06-13 | Outpatient (REF) | payer OTHER | LOC: M LAB REF 16:27 | PROVIDERS: ATTEND Nurse Practitioner Adult Health | DX: Z20.820 Contact with and (suspected) exposure to varicella (principal) ==

== ENCOUNTER 2021-10-26 11:54 | Emergency (ER) | payer OTHER ==
[~2021-10-26] VITALS: Ht 165.1 cm; Wt 80.9 kg
[2021-10-26 12:39] LABS: BASO % 0.2 % (0.0-1.0); EOS # 0.1 10^3/uL (0.0-0.5); EOS % 0.7 % (0.0-3.0); HEMATOCRIT 36.7 % (36.0-47.0); HEMOGLOBIN 11.3 g/dl (12.0-15.5); LYMPH # 1.1 10^3/uL (1.5-5.0); LYMPH % 9.5 % (24.0-44.0); MEAN CORPUSCULAR HEMOGLOBIN 31.1 pg (27.0-33.0); MEAN CORPUSCULAR HGB CONC 30.8 g/dl (32.0-36.5); MEAN CORPUSCULAR VOLUME 101.1 fl (80.0-96.0); MONO # 0.7 10^3/uL (0.0-0.8); MONO % 6.5 % (2.0-8.0); NEUTROPHILS # 9.2 10^3/uL (1.5-8.5); NEUTROPHILS % 82.6 % (36.0-66.0); PLATELET COUNT, AUTOMATED 155 10^3/uL (150-450); RED BLOOD COUNT 3.63 10^6/uL (4.00-5.40); WHITE BLOOD COUNT 11.1 10^3/uL (4.0-10.0)
[2021-10-26 13:13] LABS: CK-MB VALUE MASS < 1.0 NG/ML (<3.6); CPK CREATINE PHOSPHOKINASE 35 U/L (26-192); MB/CK RELATIVE INDEX 2.86 (< OR =4)
[2021-10-26 13:18] LABS: ALBUMIN 3.3 GM/DL (3.2-5.2); ALT/SGPT 13 U/L (12-78); BILIRUBIN,DIRECT 0.3 MG/DL (0.0-0.2); BILIRUBIN,TOTAL 0.8 MG/DL (0.2-1.0); BLOOD UREA NITROGEN 22 MG/DL (7-18); CALCIUM LEVEL 9.6 MG/DL (8.8-10.2); CARBON DIOXIDE LEVEL 34 MEQ/L (21-32); CHLORIDE LEVEL 100 MEQ/L (98-107); CREATININE FOR GFR 0.95 MG/DL (0.55-1.30); GLOMERULAR FILTRATION RATE > 60.0 (>45); GLUCOSE, FASTING 116 MG/DL (70-100); POTASSIUM SERUM 4.1 MEQ/L (3.5-5.1); SODIUM LEVEL 138 MEQ/L (136-145); TOTAL PROTEIN 6.9 GM/DL (6.4-8.2)
[2021-10-26 14:39] LABS: NT-PRO BNP 744 PG/ML (<125)
[2021-10-26 15:13] LABS: RSV AMPLIFICATION NEGATIVE (NEGATIVE)
[2021-10-26 15:30] VITALS: BP 175/81
[2021-10-26] MEDS ORDERED: methylPREDNISolone 125MG 2ML VIAL IV ONE (15:35)
[2021-10-26] MEDS ORDERED: AZITHROMYCIN 250MG TABLET PO ONE (16:00)
[2021-10-26] MEDS ORDERED: CEFDINIR 300 MG CAP (OMNICEF) PO ONE (16:00)
[2021-10-26] MEDS ORDERED: ZITHTAB PO (16:03)
[2021-10-26] MEDS ORDERED: CEFD300C PO (16:03)
[2021-10-26] MEDS ORDERED: PRED20TA PO (16:03)
== END 2021-10-26 17:05 | disposition home or self-care (01) ==
LOC: M ED 11:54
DX: J18.9 Pneumonia, unspecified organism (principal); N39.0 Urinary tract infection, site not specified; I10 Essential (primary) hypertension; J45.909 Unspecified asthma, uncomplicated; J44.9 Chronic obstructive pulmonary disease, unspecified; Z86.73 Personal history of transient ischemic attack (TIA), and cerebral infarction without residual deficits; Z79.01 Long term (current) use of anticoagulants; Z88.5 Allergy status to narcotic agent
CPT/HCPCS: 71045; 80048; 80076; 81000; 81015; 82550; 82553; 83880; 85025; 87086; 87631; 93005; 93041; 94760; 96374; 99285; J2930

== ENCOUNTER → 2022-05-16 | Outpatient (CLI) | payer MEDICARE ==
[~2022-05-16] MED LIST changes: +CEFD300C PO; +ZITHTAB PO
[2022-05-16 17:16] LABS: HEMATOCRIT 39.8 % (36.0-47.0); HEMOGLOBIN 12.3 g/dl (12.0-15.5); MEAN CORPUSCULAR HGB CONC 30.9 g/dl (32.0-36.5); MEAN CORPUSCULAR VOLUME 100.3 fl (80.0-96.0); PLATELET COUNT, AUTOMATED 209 10^3/uL (150-450); RED BLOOD COUNT 3.97 10^6/uL (4.00-5.40); WHITE BLOOD COUNT 7.8 10^3/uL (4.0-10.0)
[2022-05-16 17:45] LABS: ALBUMIN 3.8 G/DL (3.2-5.2); ALKALINE PHOSPHATASE 119 U/L (46-116); ALT/SGPT 12 U/L (7.0-40); AST/SGOT 20 U/L (<34); BILIRUBIN,TOTAL 0.8 MG/DL (0.3-1.2); BLOOD UREA NITROGEN 25 MG/DL (9-23); CALCIUM LEVEL 9.5 MG/DL (8.3-10.6); CARBON DIOXIDE LEVEL 32 MMOL/L (20-31); CHLORIDE LEVEL 99 MMOL/L (98-107); CREATININE FOR GFR 0.95 MG/DL (0.55-1.30); GLOMERULAR FILTRATION RATE > 60.0 (>45); GLUCOSE, FASTING 91 MG/DL (74-106); POTASSIUM SERUM 4.4 MMOL/L (3.5-5.1); SODIUM LEVEL 139 MMOL/L (136-145); TOTAL PROTEIN 6.9 G/DL (5.7-8.2)
== END ==
LOC: M PLALAB 15:19
PROVIDERS: ATTEND Nurse Practitioner Family
DX: I50.812 Chronic right heart failure (principal)

== ENCOUNTER → 2022-05-29 | Outpatient (REF) | payer MEDICARE, OTHER | LOC: M LAB REF 16:58 | PROVIDERS: ATTEND Nurse Practitioner Adult Health | DX: N39.0 Urinary tract infection, site not specified (principal) ==

== ENCOUNTER → 2022-05-31 | Outpatient (CLI) | payer MEDICARE | LOC: M RAD 07:45 | PROVIDERS: ATTEND Nurse Practitioner Adult Health | DX: R10.9 Unspecified abdominal pain (principal) ==

== ENCOUNTER → 2022-09-12 | Outpatient (CLI) | payer MEDICARE, OTHER | LOC: M CARPUL 14:04 | PROVIDERS: ATTEND Internal Medicine Pulmonary Disease | DX: I27.29 Other secondary pulmonary hypertension (principal); I35.0 Nonrheumatic aortic (valve) stenosis; I36.1 Nonrheumatic tricuspid (valve) insufficiency; I51.7 Cardiomegaly ==

== ENCOUNTER → 2022-11-15 | Outpatient (REF) | payer MEDICARE, OTHER | LOC: M LAB REF 16:35 | PROVIDERS: ATTEND Student in an Organized Health Care Education/Training Program | DX: J44.9 Chronic obstructive pulmonary disease, unspecified (principal); R30.0 Dysuria ==

== ENCOUNTER → 2023-05-02 | Outpatient (CLI) | payer MEDICARE ==
[~2023-05-02] MED LIST changes: -ASPI-161 PO; +ASPI-615 PO
== END ==
LOC: M WHC 10:26
PROVIDERS: ATTEND Nurse Practitioner Adult Health
DX: Z12.31 Encounter for screening mammogram for malignant neoplasm of breast (principal)

== ENCOUNTER → 2023-05-03 | Outpatient (CLI) | payer MEDICARE | LOC: M SOG 14:40 | PROVIDERS: ATTEND Physician Assistant | DX: M79.645 Pain in left finger(s) (principal) ==

== ENCOUNTER 2023-10-01 17:36 | Inpatient (IN) | payer MEDICARE, MEDICAID ==
[~2023-10-01] VITALS: Ht 165.1 cm; Wt 131.1 kg
[~2023-10-01 17:36] MED LIST changes: +DOXY-323 PO; -DOXY-443 PO; +ROSU5TAB40 PO; -ROSU5TAB5 PO
[2023-10-01 19:31] LABS: BASO % 0.3 % (0.0-1.0); EOS # 0.1 10^3/uL (0.0-0.5); EOS % 0.6 % (0.0-3.0); HEMATOCRIT 35.4 % (36.0-47.0); LYMPH % 7.2 % (24.0-44.0); MEAN CORPUSCULAR HEMOGLOBIN 30.6 pg (27.0-33.0); MEAN CORPUSCULAR HGB CONC 31.1 g/dl (32.0-36.5); MEAN CORPUSCULAR VOLUME 98.3 fl (80.0-96.0); NEUTROPHILS # 11.9 10^3/uL (1.5-8.5); NEUTROPHILS % 84.5 % (36.0-66.0); PLATELET COUNT, AUTOMATED 185 10^3/uL (150-450); WHITE BLOOD COUNT 14.1 10^3/uL (4.0-10.0)
[2023-10-01] MEDS ORDERED: POTA-151 PO (19:56)
[2023-10-01] MEDS ORDERED: SPIR-10 PO (19:56)
[2023-10-01 20:08] LABS: ALBUMIN 3.4 G/DL (3.2-5.2); BILIRUBIN,DIRECT 0.3 MG/DL (<0.4); BILIRUBIN,TOTAL 0.8 MG/DL (0.3-1.2); CALCIUM LEVEL 9.3 MG/DL (8.3-10.6); CREATININE FOR GFR 1.11 MG/DL (0.55-1.30); GLOMERULAR FILTRATION RATE 52.4 (>45); POTASSIUM SERUM 4.3 MMOL/L (3.5-5.1); TOTAL PROTEIN 6.8 G/DL (5.7-8.2)
[2023-10-01 20:10] LABS: THYROID STIMULATING HORMONE 1.395 uIU/ML (0.55-4.78)
[2023-10-01 20:11] LABS: THYROXINE (T4) 10.3 UG/DL (4.5-10.9)
[2023-10-01] MEDS ORDERED: ISOVUE-370 76% 100ML VIAL As Ordered ONE (20:19)
[2023-10-01 20:27] LABS: PROCALCITONIN 0.24 ng/ml
[2023-10-01] MEDS: allopurinoL 300 MG TAB PO SCH (21:00)
[2023-10-01] MEDS: POTASSIUM CHLORIDE 10MEQ SR TABLET PO SCH (21:00)
[2023-10-01] MEDS: cefTRIAXone SOD 1 GM in D5W MINI-BAG PLUS 50 ML IV ONE (21:43)
[2023-10-01] MEDS: AZITHROMYCIN INJ 500 MG, VIAL MATE ADAPTER 1 EACH in D5W 250 ML IV ONE (22:13)
[2023-10-01 23:48] LABS: ABG BASE EXCESS 5.5 (-2.0-2.0); ABG PARTIAL PRESSURE CO2 49.2 mmHg (35.0-45.0); ABG PARTIAL PRESSURE O2 71.5 mmHg (75.0-100.0); ABG STANDARD HCO3 29.4 MMOL/L. (22.0-26.0); ABG TOTAL CO2 32.5 MMOL/L (23.0-31.0); ABG pH (ARTERIAL) 7.417 UNITS (7.350-7.450)
[2023-10-02] VITALS (16 sets, daily range): BP systolic 112–131; BP diastolic 53–71; TEMP 97.2–97.6; O2SAT 84–93
[2023-10-02] MEDS ORDERED: ACETAMINOPHEN TAB 650MG DOSE (2X325MG) PO PRN (00:50)
[2023-10-02] MEDS ORDERED: MAALOX 30 ML SUSP *UDC PO PRN (00:50)
[2023-10-02] MEDS ORDERED: MOM 30ML SUSPENSION UDC PO PRN (00:50)
[2023-10-02] MEDS ORDERED: GLUCOSE 4 GM CHEW PO PRN (00:55)
[2023-10-02] MEDS ORDERED: DEXTROSE 50% 50ML SYRINGE IV PRN (00:55)
[2023-10-02] MEDS ORDERED: GLUCAGON INJ 1MG VIAL SC PRN (00:55)
[2023-10-02] MEDS ORDERED: METO25TA4 PO (01:14)
[2023-10-02] MEDS ORDERED: TORS100T PO (01:14)
[2023-10-02] MEDS ORDERED: ALLO300T2 PO (01:14)
[2023-10-02] MEDS ORDERED: FLUT1BLS8 INH (01:14)
[2023-10-02] MEDS ORDERED: METF-838 PO (01:14)
[2023-10-02] MEDS ORDERED: ELIQ5TAB PO (01:14)
[2023-10-02] MEDS ORDERED: MULT-40 PO (01:14)
[2023-10-02] MEDS ORDERED: HOME MED LIST COMPLETE! XX SCH (01:15)
[2023-10-02] MEDS: METOPROLOL TART 12.5 MG PER 1/2 TAB PO SCH (02:13)
[2023-10-02] MEDS: LEVOTHYROXINE 150MCG TABLET (0.15MG) PO SCH (06:11)
[2023-10-02] MEDS: LEVOTHYROXINE 25MCG TABLET (0.025MG) PO SCH (06:11)
[2023-10-02] MEDS: APIXABAN 5 MG TAB (ELIQUIS) PO SCH (06:11)
[2023-10-02] MEDS: traMADol 50 MG TAB PO SCH (06:11)
[2023-10-02] MEDS ORDERED: ALBUTEROL SULFATE 2.5MG/0.5ML INH NEB SOLN NEB PRN (06:50)
[2023-10-02 07:14] LABS: HEMATOCRIT 33.8 % (36.0-47.0); HEMOGLOBIN 10.3 g/dl (12.0-15.5); MEAN CORPUSCULAR HEMOGLOBIN 30.4 pg (27.0-33.0); MEAN CORPUSCULAR HGB CONC 30.5 g/dl (32.0-36.5); MEAN CORPUSCULAR VOLUME 99.7 fl (80.0-96.0); PLATELET COUNT, AUTOMATED 185 10^3/uL (150-450); RED BLOOD COUNT 3.39 10^6/uL (4.00-5.40); WHITE BLOOD COUNT 13.2 10^3/uL (4.0-10.0)
[2023-10-02] MEDS: INSULIN LISPRO (NovoLOG) PER UNIT SC SCH ×3 (07:30→21:00)
[2023-10-02 07:49] LABS: ALBUMIN 2.8 G/DL (3.2-5.2); BILIRUBIN,TOTAL 0.8 MG/DL (0.3-1.2); CALCIUM LEVEL 8.9 MG/DL (8.3-10.6); CREATININE FOR GFR 1.05 MG/DL (0.55-1.30); GLOMERULAR FILTRATION RATE 55.8 (>45); TOTAL PROTEIN 5.9 G/DL (5.7-8.2)
[2023-10-02] MEDS: TIOTROPIUM INHALER/CAPSULE (SPIRIVA) INH SCH (08:31)
[2023-10-02] MEDS: ADVAIR HFA 115/21MCG INHALER INH SCH (08:31)
[2023-10-02] MEDS: IPRATROPIUM 0.5MG/ALBUTEROL 2.5MG INH SOL UD 3ML (DUONEB) NEB SCH (08:31)
[2023-10-02] MEDS: methylPREDNISolone 125MG 2ML VIAL IV ONE (08:48)
[2023-10-02] MEDS: SPIRONOLACTONE 25 MG TAB PO SCH (08:49)
[2023-10-02] MEDS: ASPIRIN 81MG ENTERIC TABLET PO SCH (08:50)
[2023-10-02] MEDS: TORSEMIDE 100 MG TAB PO SCH (10:34)
[2023-10-02] MEDS: methylPREDNISolone 125MG 2ML VIAL IV SCH (16:40)
[2023-10-02] MEDS: guaiFENesin ER TABLET 600 MG TAB PO SCH (21:00)
[2023-10-02] MEDS: AZITHROMYCIN 250MG TABLET PO SCH (21:35)
[2023-10-02] MEDS: cefTRIAXone SOD 1 GM in D5W MINI-BAG PLUS 50 ML IV SCH (23:02)
[2023-10-03] VITALS (34 sets, daily range): BP systolic 112–128; BP diastolic 54–62; TEMP 96.8–97.8; O2SAT 81–96
[2023-10-03 05:03] LABS: BASO % 0.1 % (0.0-1.0); HEMATOCRIT 35.8 % (36.0-47.0); LYMPH # 0.6 10^3/uL (1.5-5.0); MEAN CORPUSCULAR HEMOGLOBIN 30.4 pg (27.0-33.0); MEAN CORPUSCULAR HGB CONC 30.7 g/dl (32.0-36.5); MEAN CORPUSCULAR VOLUME 98.9 fl (80.0-96.0); MONO # 0.2 10^3/uL (0.0-0.8); MONO % 1.6 % (2.0-8.0); NEUTROPHILS # 13.2 10^3/uL (1.5-8.5); NEUTROPHILS % 93.7 % (36.0-66.0); PLATELET COUNT, AUTOMATED 194 10^3/uL (150-450); RED BLOOD COUNT 3.62 10^6/uL (4.00-5.40); WHITE BLOOD COUNT 14.1 10^3/uL (4.0-10.0)
[2023-10-03 05:27] LABS: CALCIUM LEVEL 9.8 MG/DL (8.3-10.6); CREATININE FOR GFR 1.15 MG/DL (0.55-1.30); GLOMERULAR FILTRATION RATE 50.3 (>45); POTASSIUM SERUM 4.4 MMOL/L (3.5-5.1)
[2023-10-04] VITALS (38 sets, daily range): BP systolic 104–128; BP diastolic 53–59; TEMP 96.5–98; O2SAT 85–94
[2023-10-04 04:54] LABS: BASO % 0.1 % (0.0-1.0); HEMATOCRIT 34.2 % (36.0-47.0); HEMOGLOBIN 10.6 g/dl (12.0-15.5); LYMPH # 0.5 10^3/uL (1.5-5.0); LYMPH % 3.4 % (24.0-44.0); MEAN CORPUSCULAR HEMOGLOBIN 30.6 pg (27.0-33.0); MEAN CORPUSCULAR VOLUME 98.8 fl (80.0-96.0); MONO # 0.2 10^3/uL (0.0-0.8); MONO % 1.3 % (2.0-8.0); NEUTROPHILS # 15.1 10^3/uL (1.5-8.5); NEUTROPHILS % 94.2 % (36.0-66.0); PLATELET COUNT, AUTOMATED 206 10^3/uL (150-450); RED BLOOD COUNT 3.46 10^6/uL (4.00-5.40)
[2023-10-04 05:12] LABS: CALCIUM LEVEL 9.4 MG/DL (8.3-10.6); CREATININE FOR GFR 1.15 MG/DL (0.55-1.30); GLOMERULAR FILTRATION RATE 50.3 (>45); POTASSIUM SERUM 4.5 MMOL/L (3.5-5.1)
[2023-10-05] VITALS (34 sets, daily range): BP systolic 114–129; BP diastolic 57–60; TEMP 96.7–97.2; O2SAT 83–95
[2023-10-05 06:27] LABS: CALCIUM LEVEL 8.9 MG/DL (8.3-10.6); CREATININE FOR GFR 1.1 MG/DL (0.55-1.30); GLOMERULAR FILTRATION RATE 52.9 (>45); POTASSIUM SERUM 4.4 MMOL/L (3.5-5.1)
[2023-10-05 06:44] LABS: BASO % 0.1 % (0.0-1.0); HEMOGLOBIN 10.6 g/dl (12.0-15.5); LYMPH # 1.6 10^3/uL (1.5-5.0); LYMPH % 13.2 % (24.0-44.0); MEAN CORPUSCULAR HEMOGLOBIN 30.2 pg (27.0-33.0); MEAN CORPUSCULAR HGB CONC 30.3 g/dl (32.0-36.5); MEAN CORPUSCULAR VOLUME 99.7 fl (80.0-96.0); MONO # 0.7 10^3/uL (0.0-0.8); MONO % 5.7 % (2.0-8.0); NEUTROPHILS # 9.7 10^3/uL (1.5-8.5); NEUTROPHILS % 80.5 % (36.0-66.0); PLATELET COUNT, AUTOMATED 204 10^3/uL (150-450); RED BLOOD COUNT 3.51 10^6/uL (4.00-5.40); WHITE BLOOD COUNT 12.1 10^3/uL (4.0-10.0)
[2023-10-05] MEDS: FUROSEMIDE 20MG/2ML VIAL IV ONE (15:15)
[2023-10-05] MEDS: ALBUTEROL SULFATE 2.5MG/0.5ML INH NEB SOLN NEB SCH (19:53)
[2023-10-05] MEDS: SODIUM CHLORIDE HYPERTONIC 3% 4ML NEB SOL INH SCH (19:54)
[2023-10-06] VITALS (27 sets, daily range): BP systolic 117–141; BP diastolic 60–74; TEMP 96.9–97.9; O2SAT 83–97
[2023-10-06 05:53] LABS: BASO % 0.1 % (0.0-1.0); EOS # 0.1 10^3/uL (0.0-0.5); EOS % 0.9 % (0.0-3.0); HEMATOCRIT 36.5 % (36.0-47.0); HEMOGLOBIN 11.1 g/dl (12.0-15.5); LYMPH # 1.8 10^3/uL (1.5-5.0); LYMPH % 18.9 % (24.0-44.0); MEAN CORPUSCULAR HEMOGLOBIN 30.3 pg (27.0-33.0); MEAN CORPUSCULAR HGB CONC 30.4 g/dl (32.0-36.5); MEAN CORPUSCULAR VOLUME 99.7 fl (80.0-96.0); MONO # 0.7 10^3/uL (0.0-0.8); MONO % 7.2 % (2.0-8.0); NEUTROPHILS # 6.8 10^3/uL (1.5-8.5); NEUTROPHILS % 72.6 % (36.0-66.0); PLATELET COUNT, AUTOMATED 224 10^3/uL (150-450); RED BLOOD COUNT 3.66 10^6/uL (4.00-5.40); WHITE BLOOD COUNT 9.3 10^3/uL (4.0-10.0)
[2023-10-06 06:14] LABS: CALCIUM LEVEL 8.8 MG/DL (8.3-10.6); CREATININE FOR GFR 1.12 MG/DL (0.55-1.30); GLOMERULAR FILTRATION RATE 51.8 (>45); POTASSIUM SERUM 4.4 MMOL/L (3.5-5.1)
[2023-10-07] VITALS (21 sets, daily range): BP systolic 116–147; BP diastolic 56–78; TEMP 96.9–97.4; O2SAT 88–99
[2023-10-07 06:18] LABS: BASO % 0.1 % (0.0-1.0); EOS # 0.3 10^3/uL (0.0-0.5); EOS % 3.1 % (0.0-3.0); HEMATOCRIT 35.3 % (36.0-47.0); HEMOGLOBIN 10.6 g/dl (12.0-15.5); LYMPH # 1.8 10^3/uL (1.5-5.0); LYMPH % 20.1 % (24.0-44.0); MEAN CORPUSCULAR HEMOGLOBIN 29.8 pg (27.0-33.0); MEAN CORPUSCULAR VOLUME 99.2 fl (80.0-96.0); MONO # 0.6 10^3/uL (0.0-0.8); MONO % 6.3 % (2.0-8.0); NEUTROPHILS # 6.2 10^3/uL (1.5-8.5); NEUTROPHILS % 70.1 % (36.0-66.0); PLATELET COUNT, AUTOMATED 215 10^3/uL (150-450); RED BLOOD COUNT 3.56 10^6/uL (4.00-5.40); WHITE BLOOD COUNT 8.9 10^3/uL (4.0-10.0)
[2023-10-07 06:46] LABS: CALCIUM LEVEL 8.8 MG/DL (8.3-10.6); CREATININE FOR GFR 1.07 MG/DL (0.55-1.30); GLOMERULAR FILTRATION RATE 54.6 (>45); POTASSIUM SERUM 3.9 MMOL/L (3.5-5.1)
[2023-10-08] VITALS (15 sets, daily range): BP systolic 113–129; BP diastolic 53–62; TEMP 96.9–98.4; O2SAT 86–96
[2023-10-08 07:05] LABS: BASO % 0.2 % (0.0-1.0); EOS # 0.6 10^3/uL (0.0-0.5); EOS % 5.1 % (0.0-3.0); HEMATOCRIT 36.2 % (36.0-47.0); HEMOGLOBIN 10.9 g/dl (12.0-15.5); LYMPH # 2.1 10^3/uL (1.5-5.0); LYMPH % 19.4 % (24.0-44.0); MEAN CORPUSCULAR HEMOGLOBIN 29.7 pg (27.0-33.0); MEAN CORPUSCULAR HGB CONC 30.1 g/dl (32.0-36.5); MEAN CORPUSCULAR VOLUME 98.6 fl (80.0-96.0); MONO # 0.6 10^3/uL (0.0-0.8); MONO % 5.7 % (2.0-8.0); NEUTROPHILS # 7.4 10^3/uL (1.5-8.5); NEUTROPHILS % 68.9 % (36.0-66.0); PLATELET COUNT, AUTOMATED 231 10^3/uL (150-450); RED BLOOD COUNT 3.67 10^6/uL (4.00-5.40); WHITE BLOOD COUNT 10.7 10^3/uL (4.0-10.0)
[2023-10-08 07:30] LABS: CALCIUM LEVEL 8.6 MG/DL (8.3-10.6); CREATININE FOR GFR 1.06 MG/DL (0.55-1.30); GLOMERULAR FILTRATION RATE 55.2 (>45); POTASSIUM SERUM 3.9 MMOL/L (3.5-5.1)
[2023-10-08] MEDS ORDERED: LEVO750T14 PO (11:34)
[2023-10-08] MEDS ORDERED: MUCI600T31 PO (11:34)
== END 2023-10-08 16:06 | disposition home health service (06) | DRG 193 ==
LOC: M ED 17:36 → M ED INP 10-02 00:39 → M PCU 10-02 12:54
PROVIDERS: ADMIT Student in an Organized Health Care Education/Training Program; ATTEND Internal Medicine
DX: J18.9 Pneumonia, unspecified organism (principal); J96.21 Acute and chronic respiratory failure with hypoxia; Z68.42 Body mass index [BMI] 45.0-49.9, adult; J44.0 Chronic obstructive pulmonary disease with (acute) lower respiratory infection; I50.30 Unspecified diastolic (congestive) heart failure; I27.20 Pulmonary hypertension, unspecified; E66.01 Morbid (severe) obesity due to excess calories; E11.9 Type 2 diabetes mellitus without complications; I48.91 Unspecified atrial fibrillation; E03.9 Hypothyroidism, unspecified; I36.0 Nonrheumatic tricuspid (valve) stenosis; G47.33 Obstructive sleep apnea (adult) (pediatric); Z99.81 Dependence on supplemental oxygen; Z79.01 Long term (current) use of anticoagulants; M10.9 Gout, unspecified; Z88.5 Allergy status to narcotic agent; Z79.899 Other long term (current) drug therapy; Z79.82 Long term (current) use of aspirin; Z86.73 Personal history of transient ischemic attack (TIA), and cerebral infarction without residual deficits; Z87.891 Personal history of nicotine dependence

== ENCOUNTER → 2023-10-29 | Outpatient (CLI) | payer MEDICARE ==
[~2023-10-29] MED LIST changes: +ALLO300T2 PO; +ELIQ5TAB PO; +FLUT1BLS8 INH; +GASTROGRAFIN SOLUTION 30ML As Ordered ONE; +ISOVUE-370 76% 100ML VIAL As Ordered ONE; +LEVO750T14 PO; +METF-838 PO; +METO25TA4 PO; +MUCI600T31 PO; +MULT-40 PO; +POTA-151 PO; +SPIR-10 PO; +TORS100T PO
== END ==
LOC: M RAD 11:57
PROVIDERS: ATTEND Nurse Practitioner Family
DX: R10.12 Left upper quadrant pain (principal); K44.9 Diaphragmatic hernia without obstruction or gangrene; N20.0 Calculus of kidney
CPT/HCPCS: 74177; Q9963; Q9967

== ENCOUNTER → 2024-02-19 | Outpatient (REF) | payer MEDICARE ==
[~2024-02-19] MED LIST changes: -DOXY-323 PO; +DOXY-441 PO; -GASTROGRAFIN SOLUTION 30ML As Ordered ONE; -ISOVUE-370 76% 100ML VIAL As Ordered ONE; -LEVO750T14 PO; +LEVO75TAB PO; -ROSU5TAB40 PO; +ROSU5TAB49 PO
[2024-02-19 13:43] LABS: APPEARANCE, URINE CLEAR (CLEAR); BACTERIA, URINE AUTO NEGATIVE (NEGATIVE); BILIRUBIN, URINE AUTO NEGATIVE (NEGATIVE); BLOOD, URINE BLOOD NEGATIVE (NEGATIVE); COLOR, URINE STRAW (YELLOW); GLUCOSE, URINE (UA) AUTO NEGATIVE (NEGATIVE); KETONE, URINE AUTO NEGATIVE (NEGATIVE); LEUKOCYTE ESTERASE, URINE AUTO 1+ (NEGATIVE); NITRITE, URINE AUTO NEGATIVE (NEGATIVE); PROTEIN, URINE AUTO NEGATIVE (NEGATIVE); RBC, URINE AUTO 1 /HPF (0-3); SPECIFIC GRAVITY URINE AUTO 1.006 (1.002-1.035); SQUAMOUS EPITHELIAL CELL UR AU 1 /HPF (0-6); UROBILINOGEN, URINE AUTO 0.2 mg/dL (0.0-2.0); WBC, URINE AUTO 7 /HPF (0-3)
== END ==
LOC: M SMT 12:54
PROVIDERS: ATTEND Physician Assistant
DX: N20.0 Calculus of kidney (principal)

== ENCOUNTER → 2024-03-17 | Outpatient (CLI) | payer MEDICARE | LOC: M RAD 14:03 | PROVIDERS: ATTEND Nurse Practitioner Adult Health | DX: J18.9 Pneumonia, unspecified organism (principal) ==

== ENCOUNTER → 2024-05-29 | Outpatient (CLI) | payer MEDICARE | LOC: M WUC 14:12 | PROVIDERS: ATTEND Physician Assistant | DX: J44.9 Chronic obstructive pulmonary disease, unspecified (principal); J06.9 Acute upper respiratory infection, unspecified; R06.02 Shortness of breath; I51.7 Cardiomegaly ==

== ENCOUNTER → 2024-08-26 | Outpatient (CLI) | payer MEDICARE ==
[~2024-08-26] MED LIST changes: +AMIO200T54 PO; +CEFD1CAP9 PO; +ENAL1TAB46 PO; +POTA4.25 PO; +PRED10TA2 PO; +SEMA1PEN2 SC
== END ==
LOC: M RAD 16:16
PROVIDERS: ATTEND Internal Medicine Pulmonary Disease
DX: I51.9 Heart disease, unspecified (principal); I27.20 Pulmonary hypertension, unspecified; R91.8 Other nonspecific abnormal finding of lung field

== ENCOUNTER → 2024-09-15 | Outpatient (REF) | payer MEDICARE ==
[2024-09-15 17:05] LABS: PLATELET COUNT, AUTOMATED 253 10^3/uL (150-450)
[2024-09-15 17:16] LABS: ESTIMATED AVERAGE GLUCOSE 105.0 MG/DL (60-110)
[2024-09-15 17:28] LABS: ALT/SGPT 38.0 U/L (7.0-40); AST/SGOT 30.0 U/L (<34); CALCIUM LEVEL 9.9 MG/DL (8.3-10.6); CARBON DIOXIDE LEVEL 31.0 MMOL/L (20-31); CHLORIDE LEVEL 99.0 MMOL/L (98-107); CHOLESTEROL LEVEL 138.0 MG/DL (<200); CHOLESTEROL RISK RATIO 2.47 (<5); CREATININE FOR GFR 1.75 MG/DL (0.55-1.30); FREE T4 3.15 NG/DL (0.89-1.76); GLOMERULAR FILTRATION RATE 31.6 (>45); LDL CHOLESTEROL 63.4 MG/DL (<100); MAGNESIUM LEVEL 2.2 MG/DL (1.8-2.4); NON-HDL-C 82.2 MG/DL; POTASSIUM SERUM 4.3 MMOL/L (3.5-5.1); SODIUM LEVEL 143.0 MMOL/L (136-145); TRIGLYCERIDES LEVEL 94.0 MG/DL (<150)
== END ==
LOC: M SFHCADAM 13:43
PROVIDERS: ATTEND Family Medicine
DX: Z86.73 Personal history of transient ischemic attack (TIA), and cerebral infarction without residual deficits (principal); E11.9 Type 2 diabetes mellitus without complications; I48.92 Unspecified atrial flutter; E78.5 Hyperlipidemia, unspecified; M10.9 Gout, unspecified

== ENCOUNTER → 2024-12-07 | Outpatient (CLI) | payer MEDICARE ==
[~2024-12-07] MED LIST changes: -COLC0.6T47 PO; +COLC0.6T53 PO
[2024-12-07 16:33] LABS: PLATELET COUNT, AUTOMATED 241 10^3/uL (150-450)
[2024-12-07 16:58] LABS: CALCIUM LEVEL 9.4 MG/DL (8.3-10.6); CARBON DIOXIDE LEVEL 33.0 MMOL/L (20-31); CHLORIDE LEVEL 98.0 MMOL/L (98-107); CREATININE FOR GFR 1.66 MG/DL (0.55-1.30); GLOMERULAR FILTRATION RATE 33.6 (>45); POTASSIUM SERUM 4.6 MMOL/L (3.5-5.1); SODIUM LEVEL 141.0 MMOL/L (136-145)
== END ==
LOC: M LAB 15:15
PROVIDERS: ATTEND Internal Medicine Critical Care Medicine
DX: G47.33 Obstructive sleep apnea (adult) (pediatric) (principal); R06.00 Dyspnea, unspecified; I50.33 Acute on chronic diastolic (congestive) heart failure

== ENCOUNTER 2025-01-05 12:33 | Outpatient (CLI) | payer MEDICARE ==
[~2025-01-05] VITALS: Ht 165.1 cm; Wt 107.2 kg
[~2025-01-05 12:33] MED LIST changes: +ALBUTEROL SULFATE 2.5 MG/0.5 ML INH CONCENTRATE NEB SOLN INH PRN; +EPINEPHrine INJ 1 MG/ML 1ML AMP IM PRN; +NS (Normal Saline) 0.9% 1,000 ML IV SCH; +diphenhydrAMINE 50 MG/ML VIAL IV PRN
[2025-01-05 12:40] VITALS: BP 125/60; O2SAT 96
[2025-01-05] MEDS: IRON SUCROSE 300 MG in NS 250 ML IV ONE (13:10)
[2025-01-05 15:05] VITALS: BP 112/58; O2SAT 98
== END 2025-01-05 15:15 | disposition home or self-care (01) ==
LOC: M INFU 12:33
PROVIDERS: ATTEND Internal Medicine Nephrology
DX: N18.9 Chronic kidney disease, unspecified (principal); D63.1 Anemia in chronic kidney disease; Z88.5 Allergy status to narcotic agent
CPT/HCPCS: 96365; 96366; J1756

== ENCOUNTER 2025-01-13 13:53 | Outpatient (CLI) | payer MEDICARE ==
[~2025-01-13] VITALS: Ht 165.1 cm; Wt 107.0 kg
[~2025-01-13 13:53] MED LIST changes: -NS (Normal Saline) 0.9% 1,000 ML IV SCH
[2025-01-13] MEDS ORDERED: NS (Normal Saline) 0.9% 1,000 ML IV SCH (14:00)
[2025-01-13 14:12] VITALS: BP 121/58; O2SAT 98
[2025-01-13] MEDS: IRON SUCROSE 300 MG in NS 250 ML IV ONE (14:35)
[2025-01-13 16:20] VITALS: BP 132/68; O2SAT 94
== END 2025-01-13 16:20 | disposition home or self-care (01) ==
LOC: M INFU 13:53
PROVIDERS: ATTEND Internal Medicine Nephrology
DX: N18.9 Chronic kidney disease, unspecified (principal); D63.1 Anemia in chronic kidney disease; Z88.5 Allergy status to narcotic agent
CPT/HCPCS: 96365; 96366; J1756

== ENCOUNTER 2025-01-20 13:45 | Outpatient (CLI) | payer MEDICARE ==
[~2025-01-20] VITALS: Ht 165.1 cm; Wt 107.0 kg
[2025-01-20 13:45] VITALS: BP 140/88; O2SAT 96
[~2025-01-20 13:45] MED LIST changes: +NS (Normal Saline) 0.9% 1,000 ML IV SCH
[2025-01-20] MEDS: IRON SUCROSE 300 MG in NS 250 ML IV ONE (14:08)
[2025-01-20 16:10] VITALS: BP 129/62; O2SAT 95
[2025-01-27] MEDS ORDERED: SYNT150T PO (08:53)
== END 2025-01-20 16:10 ==
LOC: M INFU 13:45
PROVIDERS: ATTEND Internal Medicine Nephrology
DX: N18.9 Chronic kidney disease, unspecified (principal); D63.1 Anemia in chronic kidney disease; Z88.1 Allergy status to other antibiotic agents; Z88.5 Allergy status to narcotic agent; Z88.8 Allergy status to other drugs, medicaments and biological substances
CPT/HCPCS: 96365; 96366; J1756

== ENCOUNTER 2025-02-10 06:47 | Day surgery (SDC) | payer MEDICARE ==
[~2025-02-10] VITALS: Ht 165.1 cm; Wt 106.6 kg
[~2025-02-10 06:47] MED LIST changes: -ALBUTEROL SULFATE 2.5 MG/0.5 ML INH CONCENTRATE NEB SOLN INH PRN; -EPINEPHrine INJ 1 MG/ML 1ML AMP IM PRN; -NS (Normal Saline) 0.9% 1,000 ML IV SCH; +SYNT150T PO; -diphenhydrAMINE 50 MG/ML VIAL IV PRN
[2025-02-10] MEDS ORDERED: JARD1TAB PO (07:17)
[2025-02-10] MEDS ORDERED: LIDOCAINE 2% INJ 100 MG/5 ML SYRINGE As Ordered ONE (07:55)
[2025-02-10] MEDS ORDERED: GLYCOPYRROLATE INJ 0.2 MG/ML 2 ML VIAL As Ordered ONE (07:55)
[2025-02-10] MEDS ORDERED: LIDOCAINE 2% 100 MG/5 ML SDV (FOR ANES.) As Ordered ONE (07:55)
[2025-02-10 09:10] VITALS: BP 129/65; TEMP 97.2; O2SAT 94
== END 2025-02-10 09:10 | disposition home or self-care (01) ==
LOC: M OPP 06:47
PROVIDERS: ATTEND Surgery
DX: D50.9 Iron deficiency anemia, unspecified (principal); K44.9 Diaphragmatic hernia without obstruction or gangrene; K29.71 Gastritis, unspecified, with bleeding; K31.89 Other diseases of stomach and duodenum; I48.91 Unspecified atrial fibrillation; G47.30 Sleep apnea, unspecified; Z88.1 Allergy status to other antibiotic agents; Z88.5 Allergy status to narcotic agent; Z88.8 Allergy status to other drugs, medicaments and biological substances; Z79.01 Long term (current) use of anticoagulants; Z79.84 Long term (current) use of oral hypoglycemic drugs; Z79.85 Long-term (current) use of injectable non-insulin antidiabetic drugs; Z79.899 Other long term (current) drug therapy; J44.9 Chronic obstructive pulmonary disease, unspecified; Z99.81 Dependence on supplemental oxygen; Z86.73 Personal history of transient ischemic attack (TIA), and cerebral infarction without residual deficits
CPT/HCPCS: 43239; 45378; 88305; J1596